=== PATIENT | male | born 1940 | race Caucasian/White ===

== ENCOUNTER 2017-06-14 14:30 | Inpatient (IN) | payer MEDICARE ==
[2017-06-27 13:27] VITALS: BMI 25.1
[2017-07-03] MEDS ORDERED: ceFAZolin IN SWFI 2 GM/20 ML SYRINGE IVP ONE (05:00)
[2017-07-03] MEDS ORDERED: BACITRACIN 50,000 UNIT, POLYMYXIN B 500,000 UNIT in SODIUM CHLORIDE 0.9% IRRIGATIO 1,00... IRRIGATION ONE (05:00)
[2017-07-03] MEDS ORDERED: MIDAZOLAM 2 MG/2 ML VIAL IV PRN (06:07)
[2017-07-03] MEDS ORDERED: DEXAMETHASONE SOD PHOSPHATE 10 MG/ML 1 ML VIAL IV ONE (06:07)
[2017-07-03] MEDS ORDERED: MORPHINE SULFATE 4 MG/ML SYRINGE IV PRN (06:07)
[2017-07-03] MEDS ORDERED: LIDOCAINE 1% 20 ML VIAL (10MG/ML) FOR IV START INTRADERMA PRN (06:07)
[2017-07-03] MEDS ORDERED: ONDANSETRON 4 MG/2 ML VIAL IVP ONE (06:07)
[2017-07-03] MEDS ORDERED: LACTATED RINGERS 1,000 ML IV SCH (06:07)
[2017-07-03 10:54] LABS: Glucose,Whole Blood 177 mg/dL (75-99)
[2017-07-03] MEDS ORDERED: GELATIN SPONGE,ABSORB (LARGE) 1 EACH SPONGE TOPICAL ONE (11:46)
[2017-07-03] MEDS ORDERED: LIDOCAINE 0.5%-EPI 1:200,000 50 ML VIAL SQ ONE (11:46)
[2017-07-03] MEDS ORDERED: THROMBIN (BOVINE) 5,000 UNIT VIAL TOPICAL ONE (11:46)
[2017-07-03] MEDS ORDERED: NEOSTIGMINE 1 MG/ML 10 ML VIAL ONE (12:36)
[2017-07-03] MEDS ORDERED: PROPOFOL 10 MG/ML 20 ML VIAL IV ONE (12:36)
[2017-07-03] MEDS ORDERED: MORPHINE SULFATE 10 MG/ML SYRINGE ONE (12:36)
[2017-07-03] MEDS ORDERED: MIDAZOLAM 2 MG/2 ML VIAL ONE (12:36)
[2017-07-03] MEDS ORDERED: fentaNYL (PF) 50 MCG/ML 2 ML AMP ONE (12:36)
[2017-07-03] MEDS ORDERED: PHENYLEPHRINE-0.9% NACL SYG 1 MG/10 ML SYRINGE ONE (12:36)
[2017-07-03] MEDS ORDERED: SUCCINYLCHOLINE CHLORIDE 100 MG/5 ML SYR IV ONE (12:36)
[2017-07-03] MEDS ORDERED: GLYCOPYRROLATE 0.2 MG/ML 2 ML VIAL ONE (12:36)
[2017-07-03] MEDS ORDERED: ROCURONIUM BROMIDE 10 MG/ML 10 ML VIAL IV ONE (12:36)
[2017-07-03] MEDS ORDERED: KETOROLAC 30 MG/ML 1 ML VIAL ONE (12:36)
--- NOTE | 2017-07-03 13:28 | FL ---
Fluoroscopy HISTORY: Lumbar laminectomy 3 seconds fluoroscopy time supplied to the referring clinician. 1 intraoperative C-arm images docume nt the procedure. See dictated report from orthopedic surgery.
[2017-07-03] MEDS ORDERED: methylPREDNISolone ACETATE 40 MG/ML 1 ML VIAL MISCELLANE ONE (13:30)
[2017-07-03] MEDS ORDERED: LACTATED RINGERS 1,000 ML IV ONE (13:38)
[2017-07-03] MEDS ORDERED: BENZOCAINE/MENTHOL LOZENG 1 EACH LOZENGE MUCOUS MEM PRN (13:55)
[2017-07-03] MEDS ORDERED: ONDANSETRON 4 MG/2 ML VIAL IVP PRN (13:56)
[2017-07-03] MEDS ORDERED: HYDROcodone/APAP 5-325MG 1 EACH TAB PO PRN (13:56)
[2017-07-03] MEDS ORDERED: HYDROcodone/APAP 7.5-325MG 1 EACH TAB PO PRN (13:58)
--- NOTE | 2017-07-03 14:04 | P.OP ---
Date of Procedure: 07/03/17 Preoperative Diagnosis: Severe spinal stenosis L4 5, neurogenic claudication, lower extremity radiculopathy Postoperative Diagnosis: Same Anesthesia: GETA Pathology: none sent Condition: stable Disposition: PACU Description of Procedure: DESCRIPTION OF PROCEDURE(S): BRIEF OPERATIVE NOTE Preoperative Diagnosis: Spinal stenosis severe at L4 5, neurogenic claudication , lower extremity radiculopathy Postoperative Diagnosis: Same Procedure: Laminectomy and decompression bilaterally at L4 5 Use of fluoroscopic guidance at L4 5 Placement of interlaminar stabilizer, Coflex device Surgeon: Dr. Caputo Backend Python Developer: Sami FREEMAN who is present throughout the entire the case persistence during positioning, dissection, exposure, visualization, and all crucial elements of the case as well as closure. Anesthesia: General anesthesia Estimated blood loss: Approximately 20 mL Complications: None apparent Components implanted: Paradigm Coflex interlaminar stabilization device Disposition: To recovery room in good stable condition. OPERATIVE INDICATIONS The patient has been having issues in their lower back and lower extremities. The patient was having evidence of neurogenic claudication and spinal stenosis along with issues with lower extremity radiculopathy. The patient was found to have significant spinal stenosis at L4 5 which was severe which correlated well with their low back and lower extremity symptoms. The patient has been through conservative treatment. With their imaging, and the level of their stenosis and their propensity for the possibility of recurrent stenosis I felt that decompression with intralaminar stabilization would be a good benefit for the patient. The patient went through significant conservative treatment. He has a number of medical issues with his cardiac issues vascular issues as well as diabetes. He is not having any benefit with aggressive conservative treatment. We discussed various treatment options including surgery, and the patient wishes to proceed with surgery We discussed the risk, patient's alternatives and benefits of surgery including but not limited to, risk of bleeding risk of infection, risk of need for further surgery, risk of decreased, loss of motion, loss of function, nerve damage, paralysis, heart attack, blindness and . OPERATIVE SUMMARY After discussing all the risks, patient alternatives and benefits at length, the patient elected to proceed with surgical intervention, signed informed consent, and presented for their procedure. The patient was seen and examined in the preoperative holding area and the surgical site was marked. The patient was given antibiotics and brought to the operating room. The patient was sedated and intubated by anesthesia in standard fashion. The patient was positioned on to the operating room table in a prone position on the appropriate frame which was well-padded and well molded. We were careful to pad any bony prominences and pressure points. We were careful to maintain the patient's cervical spine and good neutral alignment and position throughout. The patient was prepped and draped in a normal standard fashion. An appropriate timeout and keystone protocol performed. We were able to proceed with the surgery. Fluoroscopy was utilized to establish the appropriate level. The local wound area was infiltrated with local anesthetic. An incision was made at the midline longitudinally over the appropriate levels at L4 5. Dissection was taken down subcutaneously to the level of the fascia which was split midline. Dissection was taken over the lamina. Intraoperative fluoroscopy was taken which showed a marker at the appropriate level. With the appropriate level positively confirmed, we were able to proceed with laminectomy. The wound was copiously irrigated and suctioned dry as had been done periodically throughout the case. I performed a laminectomy with a combination of curettes and a high-speed bur and Kerrison rongeurs. A small medial facetectomy was performed again further access. This was done bilaterally at that level. A partial foraminotomy was also performed. Portions of the ligamentum flavum were taken down to expose the dura and traversing nerve root. I was able get wide decompression at L4 5 bilaterally. Good hemostasis maintained. The wound was copiously irrigated and suctioned dry. Good decompression was noted. At this point further prepared the interspinous process and interlaminar space with a combination of curettes and a high-speed bur and Kerrison rongeurs. As able get good parallel alignment at the interspinous process space and interlaminar space. I used a trial spacer for the Coflex device and have good fit and fill with the appropriate size device. I had to shave down the spinous process at to allow for appropriate positioning of the Coflex device. The device was prepared and then positioned and malleted in position with good alignment and good position and good bony purchase at the interlaminar space. The position was checked and found to be approximately 3 mm away from the dura without impingement on the dura itself. It was checked and found to be stable. Intraoperative C-arm was utilized to confirm the alignment and position at the appropriate levels at L4 5. We were able to proceed with closure. The fascia was closed for a watertight closure. The subcuticular tissue was closed with absorbable suture. The wound was cleaned and dried and dressed with the appropriate dressing. The drapes were broken down. The patient was gently rolled back onto their hospital bed being careful to maintain their cervical spine and good neutral alignment and position. They were woken up by anesthesia, extubated, and brought to the recovery room in good stable condition. The patient will be admitted to the hospital for observation and for appropriate postoperative care, medical management and monitoring. We will continue to follow them closely about the postoperative course.
[2017-07-03] MEDS ORDERED: MORPHINE SULFATE 4 MG/ML SYRINGE IVP ONE (14:20)
[2017-07-03] MEDS ORDERED: hydrALAZINE HCL 20 MG/ML 1 ML VIAL IVP ONE (15:00)
[2017-07-03] MEDS ORDERED: INSULIN ASPART 100 UNIT/ML 1 ML 10 ML VIAL SQ ONE (15:15)
[2017-07-03 15:16] LABS: Glucose,Whole Blood 244 mg/dL (75-99)
[2017-07-03] MEDS: HYDROcodone/APAP 5-325MG 1 EACH TAB PO PRN (16:53)
[2017-07-03] MEDS: SODIUM CHLORIDE 0.9% 1,000 ML IV SCH (16:53)
[2017-07-03 17:04] LABS: Glucose,Whole Blood 238 mg/dL (75-99)
[2017-07-03] MEDS ORDERED: INSULN ASP PRT/INSULIN ASPART 100 UNIT/ML 10 ML VIAL SQ SCH (17:30)
[2017-07-03] MEDS: ceFAZolin IN SWFI 2 GM/20 ML SYRINGE IVP SCH ×2 (18:06→23:28)
[2017-07-03] MEDS: MORPHINE SULFATE 4 MG/ML SYRINGE IVP PRN ×2 (19:43→23:27)
[2017-07-03 20:37] LABS: Glucose,Whole Blood 294 mg/dL (75-99)
[2017-07-03] MEDS ORDERED: ATORVASTATIN 10 MG TAB PO SCH (21:00)
[2017-07-03 21:59] VITALS: RESP 18
[2017-07-04] MEDS: SODIUM CHLORIDE 0.9% 1,000 ML IV SCH (04:29)
[2017-07-04] MEDS: HYDROcodone/APAP 5-325MG 1 EACH TAB PO PRN ×2 (04:41→09:39)
[2017-07-04 06:27] VITALS: BP 147/74; PULSE 76; TEMP 98.1
[2017-07-04 07:00] LABS: Glucose,Whole Blood 233 mg/dL (75-99)
[2017-07-04] MEDS ORDERED: INSULN ASP PRT/INSULIN ASPART 100 UNIT/ML 10 ML VIAL SQ SCH (07:30)
--- NOTE | 2017-07-04 08:33 | P.DS ---
Providers Date of admission: 07/03/17 10:21 Expected date of discharge: 07/04/17 Attending physician: Dallas Caputo Primary care physician: Arjun Malhotra - Discharge Diagnosis(es) (1) Neurogenic claudication Current Visit: Yes Status: Acute (2) Radiculopathy with lower extremity symptoms Current Visit: Yes Status: Acute (3) Lumbar stenosis Current Visit: Yes Status: Acute Hospital Course: This is a pleasant 76-year-old male who presented with L4-5 severe spinal canal stenosis, neurogenic claudication, and lower extremity radiculopathy who failed outpatient conservative therapy. He was admitted for an L4-5 laminectomy and decompression with placement of interlaminar stabilization device. The patient tolerated the procedure well and did well postoperatively. His pain has been adequately controlled. He is been able to ambulate the hallways. He is not currently experiencing any lower extremity radiculopathy like he was prior to surgical intervention. He feels he is ready for discharge. Condition on day of discharge stable. Patient will be discharged home. Patient was cleared preoperatively for surgery by Dr. Malhotra. Patient currently denies any nausea , vomiting, fever, or chills. Patient is eating and voiding freely without difficulty. Patient may shower Tegaderm dressing intact. Patient may remove Tegaderm dressing in 3 days and shower without a dressing at that time. Patient should keep Steri-Strips intact and allow them to fall off naturally. Patient should refrain from driving until at least after their first follow-up appointment in the office. Patient should avoid excessive bending, lifting, and twisting; no lifting greater than 20 pounds. Patient may resume [place] 7.5 mg/325 mg as previously prescribed as needed for his symptoms along with his other previously prescribed home medications. MAPS was performed prior to discharge. Physical Exam on day of discharge: Patient is awake, alert, and oriented 3 Vital signs stable Good chest excursion with deep inspiration and expiration Abdomen soft nontender No signs or symptoms of DVT Extensor hallucis longus, plantarflexion, and dorsiflexion positive sustained bilateral lower extremities Incision is dry and intact; some dried blood at the inferior portion of the dressing; no erythema, purulence, or signs of infection No active drainage from the surgical site Significant pain with palpation of the surgical site Tegaderm dressing and non-stick Telfa intact Procedures: L4-5 laminectomy and decompression with placement of interlaminar stabilization device Patient Condition at Discharge: Stable Plan - Discharge Summary Discharge Rx Participant: Yes New Discharge Prescriptions: No Action metFORMIN HCL 1,000 mg PO DAILY Lisinopril [Zestril] 10 mg PO DAILY Metoprolol Tartrate [Lopressor] 50 mg PO DAILY Insulin Aspart Protam & Aspart [NovoLOG MIX 70-30 Flexpen] 25 unit SQ AC- SUPPER HYDROcodone/APAP 7.5-325MG [[place] 7.5-325] 1 tab PO Q4H PRN PRN Reason: Pain Insulin Aspart Protam & Aspart [NovoLOG MIX 70-30 Flexpen] 45 unit SQ AC- BRKFST Simvastatin [Zocor] 20 mg PO HS Aspirin 81 mg PO DAILY Clopidogrel [Plavix] 75 mg PO DAILY Discharge Medication List Aspirin 81 mg PO DAILY 06/27/17 [History] Clopidogrel [Plavix] 75 mg PO DAILY 06/27/17 [History] HYDROcodone/APAP 7.5-325MG [[place] 7.5-325] 1 tab PO Q4H PRN 06/27/17 [History] Insulin Aspart Protam & Aspart [NovoLOG MIX 70-30 Flexpen] 25 unit SQ AC-SUPPER 06/27/17 [History] Insulin Aspart Protam & Aspart [NovoLOG MIX 70-30 Flexpen] 45 unit SQ AC-BRKFST 06/27/17 [History] Lisinopril [Zestril] 10 mg PO DAILY 06/27/17 [History] Metoprolol Tartrate [Lopressor] 50 mg PO DAILY 06/27/17 [History] Simvastatin [Zocor] 20 mg PO HS 06/27/17 [History] metFORMIN HCL 1,000 mg PO DAILY 06/27/17 [History] Follow up Appointment(s)/Referral(s): Dallas Caputo DO [Doctor of Osteopathic Medicine] - 2 Weeks Activity/Diet/Wound Care/Special Instructions: Keep site clean May shower with waterproof dressing intact On Monday patient may shower with area uncovered believe Steri-Strips intact and allow them to fray off on their own. Do not soak in a tub. May ambulate to tolerance. Avoid repetitive bending twisting or lifting. No lifting greater than 20 pounds. Avoid heavy or rigorous activity. Discharge Disposition: HOME SELF-CARE
[2017-07-04] MEDS ORDERED: METOPROLOL TARTRATE 50 MG TAB PO SCH (09:00)
[2017-07-04] MEDS ORDERED: LISINOPRIL 10 MG TAB PO SCH (09:00)
[2017-07-04] MEDS ORDERED: metFORMIN 500 MG TAB PO SCH (09:00)
[2017-07-04] MEDS ORDERED: CLOPIDOGREL 75 MG TAB PO SCH (09:00)
[2017-07-04] MEDS ORDERED: SENNOSIDES-DOCUSATE SODIUM 1 EACH TAB PO SCH (09:00)
[2017-07-04] MEDS ORDERED: ASPIRIN 81 MG PO SCH (09:00)
== END 2017-07-04 11:20 | disposition home or self-care (01) | DRG 517 ==
LOC: 2ORMAIN 07-03 10:21 → 5MS5E 07-03 14:21
PROVIDERS: ADMIT Orthopaedic Surgery Orthopaedic Surgery of the Spine; ATTEND Orthopaedic Surgery Orthopaedic Surgery of the Spine
PROC: 01NB0ZZ Release Lumbar Nerve, Open Approach (ICD-10-PCS; principal; 2017-07-03 12:00)
DX: M48.062 Spinal stenosis, lumbar region with neurogenic claudication (principal); M47.817 Spondylosis without myelopathy or radiculopathy, lumbosacral region; M51.16 Intervertebral disc disorders with radiculopathy, lumbar region; I25.10 Atherosclerotic heart disease of native coronary artery without angina pectoris; E78.5 Hyperlipidemia, unspecified; E11.40 Type 2 diabetes mellitus with diabetic neuropathy, unspecified; K21.9 Gastro-esophageal reflux disease without esophagitis; M19.90 Unspecified osteoarthritis, unspecified site; I65.23 Occlusion and stenosis of bilateral carotid arteries; I25.2 Old myocardial infarction; R01.1 Cardiac murmur, unspecified; E11.51 Type 2 diabetes mellitus with diabetic peripheral angiopathy without gangrene; E11.22 Type 2 diabetes mellitus with diabetic chronic kidney disease; I12.9 Hypertensive chronic kidney disease with stage 1 through stage 4 chronic kidney disease, or unspecified chronic kidney disease; N18.9 Chronic kidney disease, unspecified; Z95.5 Presence of coronary angioplasty implant and graft; Z87.891 Personal history of nicotine dependence; Z79.01 Long term (current) use of anticoagulants; Z79.82 Long term (current) use of aspirin; Z79.899 Other long term (current) drug therapy; Z90.49 Acquired absence of other specified parts of digestive tract; Z90.79 Acquired absence of other genital organ(s); Z83.3 Family history of diabetes mellitus
CPT/HCPCS: 86850; 86870; 86880; 86900; 86901

== ENCOUNTER 2021-03-30 11:06 | Observation (INO) | payer MEDICARE ==
[2021-03-30 12:10] LABS: Basophils # (A) 0.1 k/uL (0-0.2); Basophils % (A) 1 %; Eosinophils # (A) 0.1 k/uL (0-0.7); Eosinophils % (A) 1 %; HGB 9.4 gm/dL (13.0-17.5); Lymphocytes # (A) 1.3 k/uL (1.0-4.8); Lymphocytes % (A) 15 %; MCH 33.8 pg (25.0-35.0); MCHC 33.6 g/dL (31.0-37.0); MCV 100.5 fL (80.0-100.0); Macrocytosis Slight; Mean Platelet Volume 7.5; Monocytes # (A) 0.6 k/uL (0-1.0); Monocytes % (A) 7 %; Neutrophils # (A) 6.5 k/uL (1.3-7.7); Neutrophils % (A) 75 %; Platelet Count 371 k/uL (150-450); RBC 2.79 m/uL (4.30-5.90); RDW 14.2 % (11.5-15.5); WBC 8.6 k/uL (3.8-10.6)
[2021-03-30 12:22] LABS: Albumin 3.2 g/dL (3.5-5.0); Calcium 8.6 mg/dL (8.4-10.2); Magnesium 1.8 mg/dL (1.6-2.3); Potassium 5.4 mmol/L (3.5-5.1); Total Bilirubin 0.4 mg/dL (0.2-1.3); Total Protein 6.2 g/dL (6.3-8.2)
--- NOTE | 2021-03-30 12:53 | ED ---
General Adult HPI - General Chief complaint: Recheck/Abnormal Lab/Rx Stated complaint: NSTEMI Source: patient, EMS Mode of arrival: EMS Limitations: no limitations - History of Present Illness Initial comments: Patient is an 80-year-old male past medical history of coronary artery disease status post 2 stents which were placed approximately 3-4 years ago at [facility] presents emergency department from [facility]. Patient has a history of chronic back pain. States that he was cut off from his [place] and therefore his son gave him a marijuana cookie last night. He began having altered mental status and then became obtunded. He was transferred via EMS to [facility]. [facility] watched him overnight and discharge him in the morning. He did have a bump in his troponin therefore they recommended transfer here for an STEMI evaluation. Review the patient's chart and stated that the patient had a troponin of 0.034 originally. Repeat troponin 1 up to 0.228. X- ray also shows masslike density in the left lower lobe suspicious for tumor. 7 cm in size. She has no chest pain or shortness of breath. - Related Data Home Medications Medication Instructions Recorded Confirmed Aspirin 81 mg PO DAILY 06/27/17 03/30/21 Clopidogrel [Plavix] 75 mg PO DAILY 06/27/17 03/30/21 HYDROcodone/APAP 7.5-325MG [[place] 1 tab PO Q6H PRN 06/27/17 03/30/21 7.5-325] Insulin Aspart Protam & Aspart 20 unit SQ AC-SUPPER 06/27/17 03/30/21 [NovoLOG MIX 70-30 Flexpen] Insulin Aspart Protam & Aspart 25 unit SQ AC-BRKFST 06/27/17 03/30/21 [NovoLOG MIX 70-30 Flexpen] Metoprolol Succinate [Toprol XL] 50 mg PO DAILY 03/30/21 03/30/21 Omeprazole 20 mg PO DAILY 03/30/21 03/30/21 Simvastatin [Zocor] 10 mg PO HS 03/30/21 03/30/21 Tamsulosin [Flomax] 0.4 mg PO HS 03/30/21 03/30/21 lisinopriL [Zestril] 5 mg PO DAILY 03/30/21 03/30/21 metFORMIN HCL 500 mg PO DAILY 03/30/21 03/30/21 Allergies Allergy/AdvReac Type Severity Reaction Status Date / Time No Known Allergies Allergy Verified 03/30/21 12:40 Review of Systems ROS Statement: Those systems with pertinent positive or pertinent negative responses have been documented in the HPI. ROS Other: All systems not noted in ROS Statement are negative. Past Medical History Past Medical History: Coronary Artery Disease (CAD), Cancer, Diabetes Mellitus, GERD/Reflux, Hyperlipidemia, Hypertension, Osteoarthritis (OA) Additional Past Medical History / Comment(s): APPENDIX -CARCENOID TUMOR, BACK PAIN History of Any Multi-Drug Resistant Organisms: None Reported Past Surgical History: Appendectomy, Cholecystectomy, Heart Catheterization With Stent Additional Past Surgical History / Comment(s): CAROTID ENDARTECTOMY, BILATERAL LEGS- PTBA POSS PTCA , FEM-FEMORAL POPITEAL BYPASS Past Anesthesia/Blood Transfusion Reactions: No Reported Reaction Date of Last Stent Placement:: AUGUST 2016 Past Psychological History: Anxiety Smoking Status: Former smoker Past Alcohol Use History: None Reported Past Drug Use History: None Reported - Past Family History Mother Family Medical History: No Reported History General Exam Limitations: no limitations Course Vital Signs 03/30/21 03/30/21 11:49 13:20 Temperature 98.2 F Pulse Rate 72 70 Respiratory 18 18 Rate Blood Pressure 142/69 143/73 O2 Sat by Pulse 98 99 Oximetry - Reevaluation(s) Reevaluation #1: 03/30/21 14:[address] Romero - will order echo and hold off on heparin EKG Findings - EKG Comments: EKG Findings:: EKG demonstrates sinus rhythm with a ventricular rate of 65. HI interval 201. QRS 105. QTC of 442. No acute ST segment elevations. Inverted T-wave lead V2 Medical Decision Making - Medical Decision Making Upon arrival the patient is placed in room 17. A thorough history and physical exam was performed. Laboratory studies were repeated. He does have a troponin of 0.301. Because of this I did call to the Dr. Romero. States that the patient is a symptomatic he does not need heparin at this time. He is okay with me ordering an echo. Potassium is 5.4 and therefore the patient is given a liter bolus normal saline. Spoke with Dr. Gómez agreed to admit the patient. He is currently awaiting a bed on the floor - Lab Data Result diagrams: 03/30/21 11:49 03/30/21 11:49 Lab Results 03/30/21 03/30/21 03/30/21 Range/Units 11:49 11:49 11:49 WBC 8.6 (3.8-10.6) k/uL RBC 2.79 L (4.30-5.90) m/uL Hgb 9.4 L (13.0-17.5) gm/dL Hct 28.0 L (39.0-53.0) % MCV 100.5 H (80.0-100.0) fL MCH 33.8 (25.0-35.0) pg MCHC 33.6 (31.0-37.0) g/dL RDW 14.2 (11.5-15.5) % Plt Count 371 (150-450) k/uL MPV 7.5 Neutrophils % 75 % Lymphocytes % 15 % Monocytes % 7 % Eosinophils % 1 % Basophils % 1 % Neutrophils # 6.5 (1.3-7.7) k/uL Lymphocytes # 1.3 (1.0-4.8) k/uL Monocytes # 0.6 (0-1.0) k/uL Eosinophils # 0.1 (0-0.7) k/uL Basophils # 0.1 (0-0.2) k/uL Macrocytosis Slight PT 10.4 (9.0-12.0) sec INR 1.0 (<1.2) APTT 21.3 L (22.0-30.0) sec Sodium 134 L (137-145) mmol/L Potassium 5.4 H (3.5-5.1) mmol/L Chloride 106 (98-107) mmol/L Carbon Dioxide 24 (22-30) mmol/L Anion Gap 4 mmol/L BUN 21 H (9-20) mg/dL Creatinine 1.32 H (0.66-1.25) mg/dL Est GFR (CKD-EPI)AfAm 59 (>60 ml/min/1.73 sqM) Est GFR (CKD-EPI)NonAf 51 (>60 ml/min/1.73 sqM) Glucose 190 H (74-99) mg/dL Calcium 8.6 (8.4-10.2) mg/dL Magnesium 1.8 (1.6-2.3) mg/dL Total Bilirubin 0.4 (0.2-1.3) mg/dL AST 16 L (17-59) U/L ALT 10 (4-49) U/L Alkaline Phosphatase 61 (38-126) U/L Troponin I (0.000-0.034) ng/mL NT-Pro-B Natriuret Pep pg/mL Total Protein 6.2 L (6.3-8.2) g/dL Albumin 3.2 L (3.5-5.0) g/dL 03/30/21 03/30/21 Range/Units 11:49 11:49 WBC (3.8-10.6) k/uL RBC (4.30-5.90) m/uL Hgb (13.0-17.5) gm/dL Hct (39.0-53.0) % MCV (80.0-100.0) fL MCH (25.0-35.0) pg MCHC (31.0-37.0) g/dL RDW (11.5-15.5) % Plt Count (150-450) k/uL MPV Neutrophils % % Lymphocytes % % Monocytes % % Eosinophils % % Basophils % % Neutrophils # (1.3-7.7) k/uL Lymphocytes # (1.0-4.8) k/uL Monocytes # (0-1.0) k/uL Eosinophils # (0-0.7) k/uL Basophils # (0-0.2) k/uL Macrocytosis PT (9.0-12.0) sec INR (<1.2) APTT (22.0-30.0) sec Sodium (137-145) mmol/L Potassium (3.5-5.1) mmol/L Chloride (98-107) mmol/L Carbon Dioxide (22-30) mmol/L Anion Gap mmol/L BUN (9-20) mg/dL Creatinine (0.66-1.25) mg/dL Est GFR (CKD-EPI)AfAm (>60 ml/min/1.73 sqM) Est GFR (CKD-EPI)NonAf (>60 ml/min/1.73 sqM) Glucose (74-99) mg/dL Calcium (8.4-10.2) mg/dL Magnesium (1.6-2.3) mg/dL Total Bilirubin (0.2-1.3) mg/dL AST (17-59) U/L ALT (4-49) U/L Alkaline Phosphatase (38-126) U/L Troponin I 0.301 H* (0.000-0.034) ng/mL NT-Pro-B Natriuret Pep 1910 pg/mL Total Protein (6.3-8.2) g/dL Albumin (3.5-5.0) g/dL Disposition Clinical Impression: NSTEMI (non-ST elevated myocardial infarction), Acute encephalopathy Disposition: ADMITTED IP TO THIS HOSP Condition: Serious Is patient prescribed a controlled substance at d/c from ED?: No Decision to Admit Reason: Admit from EC Decision Date: 03/30/21 Decision Time: 13:50
[2021-03-30 13:04] LABS: Prothrombin Time 10.4 sec (9.0-12.0)
[2021-03-30 13:11] LABS: Partial Thromboplastin Time 21.3 sec (22.0-30.0)
[2021-03-30] MEDS ORDERED: SODIUM CHLORIDE 0.9% 1,000 ML IV ONE (13:50)
[2021-03-30] MEDS ORDERED: NALOXONE 0.4 MG/ML 1 ML VIAL IV PRN (13:51)
[2021-03-30] MEDS: HYDROcodone/APAP 7.5-325MG 1 EACH TAB PO ONE ×2 (14:26→14:33)
[2021-03-30] MEDS ORDERED: HYDROcodone/APAP 7.5-325MG 1 EACH TAB PO ONE (14:33)
[2021-03-30] MEDS: INSULN ASP PRT/INSULIN ASPART 100 UNIT/ML 10 ML VIAL SQ SCH (18:59)
[2021-03-30 19:04] LABS: Glucose,Whole Blood 166 mg/dL (75-99)
[2021-03-30] MEDS ORDERED: ACETAMINOPHEN TAB 325 MG TAB PO PRN (21:58)
[2021-03-30] MEDS ORDERED: MELATONIN 3 MG TABLET PO PRN (21:58)
[2021-03-30] MEDS ORDERED: LACTULOSE 20 GM/30 ML CUP PO PRN (21:58)
[2021-03-30] MEDS ORDERED: CALCIUM CARBONATE 500 MG CHEWABLE PO PRN (21:58)
[2021-03-30] MEDS ORDERED: ALPRAZolam 0.25 MG TAB PO PRN (21:58)
[2021-03-30] MEDS ORDERED: ONDANSETRON 4 MG/2 ML VIAL IVP PRN (21:58)
[2021-03-30] MEDS: TAMSULOSIN 0.4 MG CAP.ER.24H PO SCH (22:12)
[2021-03-30] MEDS: HYDROcodone/APAP 7.5-325MG 1 EACH TAB PO PRN (22:12)
[2021-03-30] MEDS: ATORVASTATIN 10 MG TAB PO SCH (22:13)
[2021-03-31] MEDS: HYDROcodone/APAP 7.5-325MG 1 EACH TAB PO PRN ×4 (04:17→23:03)
[2021-03-31] MEDS: INSULIN ASPART (NovoLOG) 100 UNIT/ML VIAL SQ SCH ×3 (06:43→17:48)
[2021-03-31] MEDS: PANTOPRAZOLE 40 MG TABLET PO SCH (06:43)
[2021-03-31 06:44] LABS: Glucose,Whole Blood 166 mg/dL (75-99)
[2021-03-31] MEDS: INSULN ASP PRT/INSULIN ASPART 100 UNIT/ML 10 ML VIAL SQ SCH ×2 (06:54→17:49)
--- NOTE | 2021-03-31 07:07 | ECHOF ---
Referral Reason:nstemi MEASUREMENTS -------- HEIGHT: 180.3 cm WEIGHT: 77.1 kg BP: RVIDd: 2.0 cm (< 3.3) IVSd: 1.2 cm (0.6 - 1.1) LVIDd: 4.4 cm (3.9 - 5.3) LVPWd: 1.6 cm (0.6 - 1.1) IVSs: 1.9 cm LVIDs: 2.3 cm LVPWs: 2.1 cm Ao Diam: 3.4 cm (2.0 - 3.7) AV Cusp: 2.2 cm (1.5 - 2.6) LA Diam: 3.3 cm (2.7 - 3.8) MV EXCURSION: 15.965 mm (> 18.000) MV EF SLOPE: 62 mm/s (70 - 150) EPSS: 0.5 cm MV E Tyree: 0.95 m/s MV DecT: 220 ms MV A Tyree: 1.03 m/s MV E/A Ratio: 0.92 RAP: 5.00 mmHg RVSP: 14.73 mmHg FINDINGS -------- Sinus rhythm. This was a technically adequate study. The left ventricular size is normal. There is moderate concentric left ventricular hypertrophy. O verall left ventricular systolic function is mildly impaired with, an EF between 45 - 50 %. Normal LAP Grade 1 Diastolic Dysfunction. Mid- Mid inferior LV wall motion is hypokinetic. Apical inferi or LV wall motion is hypokinetic. Apical septum LV wall motion is hypokinetic. Septal Hypokines is The right ventricle is normal in size. The left atrial size is normal. The right atrial size is normal. There is mild aortic valve sclerosis. Trace to mild aortic regurgitation. Moderate mitral annular calcification present. Mild mitral regurgitation is present. The tricuspid valve appears structurally normal. Mild tricuspid regurgitation present. Right vent ricular systolic pressure is normal at < 35 mmHg. There is no pulmonic regurgitation present. The aortic root size is normal. Normal inferior vena cava with normal inspiratory collapse consistent with estimated right atrial pre ssure of 5 mmHg. There is no pericardial effusion. CONCLUSIONS -------- 1. There is moderate concentric left ventricular hypertrophy. 2. Normal LAP Grade 1 Diastolic Dysfunction. 3. Mid inferior LV wall motion is hypokinetic. 4. Apical inferior LV wall motion is hypokinetic. 5. Apical septum LV wall motion is hypokinetic. 6. MiSeptal Hypokinesis 7. The left atrial size is normal. 8. There is mild aortic valve sclerosis. 9. Trace to mild aortic regurgitation. 10. Moderate mitral annular calcification present. 11. Mild mitral regurgitation is present. 12. Mild tricuspid regurgitation present. 13. There is no pericardial effusion. DIRECTOR CONTENT MARKETING: Cary Simms RDCS
[2021-03-31 08:25] LABS: Basophils # (A) 0.1 k/uL (0-0.2); Basophils % (A) 1 %; Eosinophils # (A) 0.2 k/uL (0-0.7); Eosinophils % (A) 2 %; HCT 30.2 % (39.0-53.0); HGB 9.9 gm/dL (13.0-17.5); Lymphocytes # (A) 1.5 k/uL (1.0-4.8); Lymphocytes % (A) 19 %; MCH 33.2 pg (25.0-35.0); MCHC 32.7 g/dL (31.0-37.0); MCV 101.5 fL (80.0-100.0); Macrocytosis Slight; Mean Platelet Volume 8.1; Monocytes # (A) 0.5 k/uL (0-1.0); Monocytes % (A) 6 %; Neutrophils # (A) 5.5 k/uL (1.3-7.7); Neutrophils % (A) 69 %; Platelet Count 399 k/uL (150-450); RBC 2.98 m/uL (4.30-5.90); RDW 14.4 % (11.5-15.5); WBC 7.9 k/uL (3.8-10.6)
[2021-03-31 08:44] LABS: Calcium 9.1 mg/dL (8.4-10.2)
[2021-03-31] MEDS ORDERED: lisinopriL 5 MG TAB PO SCH (09:00)
[2021-03-31] MEDS: METOPROLOL SUCCINATE (ER) 50 MG TAB.ER.24H PO SCH (09:34)
[2021-03-31] MEDS: CLOPIDOGREL 75 MG TAB PO SCH (09:35)
[2021-03-31] MEDS: ASPIRIN 81 MG PO SCH (09:35)
[2021-03-31] MEDS ORDERED: lisinopriL 5 MG TAB PO STA (10:06)
--- NOTE | 2021-03-31 10:12 | P.CRDCN ---
History of Present Illness History of present illness: HISTORY OF PRESENTING ILLNESS This is a pleasant 80-year-old male past medical history significant for coronary artery disease status post PCI in 2017 (unknown details, thinks he had 2 stents), former smoker, type 2 diabetes, hypertension, dyslipidemia, chronic back pain, peripheral vascular disease (he thinks he had stents placed in the left lower extremity), carotid artery disease. He follows in the office with Dr. Terry Rogers in [place]. We have been asked to see in consultation for elevated troponin. Patient presents to [facility] as a transfer from [facility]. Patient does not recall the event, he remembers feeling "out of it" then he was at [facility]. He did take a [place] and half of an marijuana edible cookie. Apparently,his son gave him a marijuana edible cookie. After this, he had symptoms of altered mental status and apparently became obtunded. EMS was called, patient was brought to [facility]. Troponin was drawn and initially was 0.036-->0.034-->0.22. Transferred to [facility]. Troponins here were 0.29 and 0.24. He denies any complaints, no chest pain, shortness of breath, palpitations, lightheadedness, dizziness. Denies any recent weight loss. He denies history of Stroke, PE or DVT. Former smoker quit 16 years ago. He states 2-3 weeks ago, he followed up with Dr. Rogers. No acute findings. He states he was told he has blockages in his carotids with 70% blocked on the right, which is the same as 4 years ago. He was noted to have significant peripheral vascular disease in his bilateral lower extremities as well and has been referred to a vascular surgeon. DIAGNOSTICS -EKG reveals sinus rhythm, heart rate 65, T wave inversions in lead V2, non- specific St-T wave abnormalities -Echocardiogram revealed EF 45-50%, mid inferior, apical inferior/septum, mid septal hypokinesis, mild mitral regurgitation, mild tricuspid regurgitation, trace to mild aortic regurgitation. -Chest X-ray Report At [facility] revealed mass-like density in the left lower lobe suspicious for tumor. 7 cm in size. -CT brain report at [facility] no acute intracranial abnormality -UA tox was positive at [facility] for THC and Opiates Telemetry tracings indicate sinus mechanism HR 70s Laboratory reviewed, WBC 0.6, hemoglobin 9.4, platelets 371, sodium 134, potassium 5.1, BUN 21, serum creatinine 1.3, troponin 0.30, proBNP 1910 Current home medications include lisinopril 5 mg daily, simvastatin 10 mg nightly, metoprolol titrate 50 mg daily, Plavix 75 mg daily, aspirin 81 mg daily, metformin, insulin REVIEW OF SYSTEMS At the time of my exam: CONSTITUTIONAL: Denies fever or chills. CARDIOVASCULAR: Denies chest pain, shortness of breath, orthopnea, PND or palpitations. RESPIRATORY: Denies cough. GASTROINTESTINAL: Denies abdominal pain, diarrhea, constipation, nausea or vomiting. MUSCULOSKELETAL: Denies myalgias. NEUROLOGIC: Denies numbness, tingling, headacbe or weakness. ENDOCRINE: Denies fatigue, weight change, polydipsia or polyurina. GENITOURINARY: Denies burning, hematuria or urgency with micturation. HEMATOLOGIC: Denies history of anemia or bleeding. PHYSICAL EXAMINATION Vitals reviewed CONSTITUTIONAL: No apparent distress. HEENT: Head is normocephalic. Pupils are equal, round. Sclerae anicteric. Mucous membranes of the mouth are moist. No JVD. No carotid bruit. CHEST EXAMINATION: Lungs are clear to auscultation. No chest wall tenderness is noted on palpation or with deep breathing. HEART EXAMINATION: Regular rate and rhythm. S1, S2 heard. No murmurs, gallops or rub. ABDOMEN: Soft, nontender. Positive bowel sounds. EXTREMITIES: 2+ peripheral pulses, no lower extremity edema and no calf tenderness. NEUROLOGIC EXAMINATION: Patient is awake, alert and oriented x3. ASSESSMENT Elevated troponin, trend does not appear to be consistent with acute coronary syndrome, No evidence of ischemia noted on EKG, however EF 45-50% with wall motion abnormalities unclear if this is new Cardimyopathy,likely ischemic, EF 45-50% unclear if new/change from prior, awaiting records Acute kidney injury, improved Marijuana use Coronary artery disease status post PCI about 3-4 years ago (unknown details) Type 2 diabetes Hypertension Dyslipidemia Chronic back pain. PLAN Obtain records from Patient's [employer] Engineer Dr. Rogers Add Imdur 30mg daily Increase lisinopril to 10mg daily Continue cardiac telemetry Continue other home cardiac medications We will await records from Dr. Rogers and patient's prior Echo results and workup to determine next form of treatment. Nurse practitioner note has been reviewed by physician. Signing provider agrees with the documented findings, assessment, and plan of care. Past Medical History Past Medical History: Coronary Artery Disease (CAD), Cancer, Diabetes Mellitus, GERD/Reflux, Hyperlipidemia, Hypertension, Osteoarthritis (OA) Additional Past Medical History / Comment(s): APPENDIX -CARCENOID TUMOR, BACK PAIN History of Any Multi-Drug Resistant Organisms: None Reported Past Surgical History: Appendectomy, Cholecystectomy, Heart Catheterization With Stent Additional Past Surgical History / Comment(s): CAROTID ENDARTECTOMY, BILATERAL LEGS- PTBA POSS PTCA , FEM-FEMORAL POPITEAL BYPASS Past Anesthesia/Blood Transfusion Reactions: No Reported Reaction Date of Last Stent Placement:: AUGUST 2016 Past Psychological History: Anxiety Smoking Status: Former smoker Past Alcohol Use History: None Reported Past Drug Use History: None Reported - Past Family History Mother Family Medical History: No Reported History Medications and Allergies Home Medications Medication Instructions Recorded Confirmed Type Aspirin 81 mg PO DAILY 06/27/17 03/30/21 History Clopidogrel [Plavix] 75 mg PO DAILY 06/27/17 03/30/21 History HYDROcodone/APAP 7.5-325MG [[place] 1 tab PO Q6H PRN 06/27/17 03/30/21 History 7.5-325] Insulin Aspart Protam & Aspart 20 unit SQ AC-SUPPER 06/27/17 03/30/21 History [NovoLOG MIX 70-30 Flexpen] Insulin Aspart Protam & Aspart 25 unit SQ AC-BRKFST 06/27/17 03/30/21 History [NovoLOG MIX 70-30 Flexpen] Metoprolol Succinate [Toprol XL] 50 mg PO DAILY 03/30/21 03/30/21 History Omeprazole 20 mg PO DAILY 03/30/21 03/30/21 History Simvastatin [Zocor] 10 mg PO HS 03/30/21 03/30/21 History Tamsulosin [Flomax] 0.4 mg PO HS 03/30/21 03/30/21 History lisinopriL [Zestril] 5 mg PO DAILY 03/30/21 03/30/21 History metFORMIN HCL 500 mg PO DAILY 03/30/21 03/30/21 History Allergies Allergy/AdvReac Type Severity Reaction Status Date / Time No Known Allergies Allergy Verified 03/30/21 12:40 Physical Exam Vitals: Vital Signs Temp Pulse Resp BP Pulse Ox 03/30/21 13:20 70 18 143/73 99 03/30/21 11:49 98.2 F 72 18 142/69 98 Intake and Output 03/29/21 03/30/21 03/30/21 22:59 06:59 14:59 Other: Weight 77.111 kg Results 03/31/21 08:04 03/31/21 08:04 Cardiac Enzymes 03/30/21 03/30/21 Range/Units 11:49 11:49 AST 16 L (17-59) U/L Troponin I 0.301 H* (0.000-0.034) ng/mL Coagulation 03/30/21 Range/Units 11:49 PT 10.4 (9.0-12.0) sec APTT 21.3 L (22.0-30.0) sec CBC 03/30/21 Range/Units 11:49 WBC 8.6 (3.8-10.6) k/uL RBC 2.79 L (4.30-5.90) m/uL Hgb 9.4 L (13.0-17.5) gm/dL Hct 28.0 L (39.0-53.0) % Plt Count 371 (150-450) k/uL Comprehensive Metabolic Panel 03/30/21 Range/Units 11:49 Sodium 134 L (137-145) mmol/L Potassium 5.4 H (3.5-5.1) mmol/L Chloride 106 (98-107) mmol/L Carbon Dioxide 24 (22-30) mmol/L BUN 21 H (9-20) mg/dL Creatinine 1.32 H (0.66-1.25) mg/dL Glucose 190 H (74-99) mg/dL Calcium 8.6 (8.4-10.2) mg/dL AST 16 L (17-59) U/L ALT 10 (4-49) U/L Alkaline Phosphatase 61 (38-126) U/L Total Protein 6.2 L (6.3-8.2) g/dL Albumin 3.2 L (3.5-5.0) g/dL Current Medications Generic Name Dose Route Start Last Admin Trade Name Freq PRN Reason Stop Dose Admin Sodium Chloride 1,000 mls @ 999 mls/hr 03/30/21 13:50 Saline 0.9% IV 03/30/21 14:50 .Q1H1M ONE Naloxone HCl 0.2 mg 03/30/21 13:51 Naloxone 0.4 Mg/Ml 1 Ml Vial IV Q2M PRN Opioid Reversal Intake and Output 03/29/21 03/30/21 03/30/21 22:59 06:59 14:59 Other: Weight 77.111 kg Patient Weight 03/31/21 06:59 Weight 77.111 kg 03/30/21 11:49 03/30/21 11:49
[2021-03-31] MEDS ORDERED: RX INFO: IV CONTRAST WAS GIVEN 1 EACH MISC MISCELLANE PRN (12:21)
[2021-03-31 12:23] LABS: Glucose,Whole Blood 196 mg/dL (75-99)
[2021-03-31] MEDS: ISOSORBIDE MONONITRATE ER 30 MG TAB.ER.24H PO SCH (12:30)
--- NOTE | 2021-03-31 14:10 | CT ---
EXAMINATION TYPE: CT brain wo con DATE OF EXAM: 03/31/2021 COMPARISON: 03/29/2021 HISTORY: Acute Encephalopathy-resolved CT DLP: 1094.4 mGycm Automated exposure control for dose reduction was used. FINDINGS: Moderate generalized degenerative change with the low attenuation in the white matter which is nonspe cific. No midline shift or mass effect. Calvarium intact. Changes of nasal septal deviation noted. Orbits symmetric correlate for prior surge ry. Small hypodensity within the basal ganglia suggestive of remote lacunar infarct. Cerebellar tonsi ls low-lying in position at the level of foramen magnum and there is a partially empty sella turcica. IMPRESSION: DEGENERATIVE AND NONSPECIFIC WHITE MATTER CHANGES MOST TYPICAL REMOTE ISCHEMIA. NO ACUTE HEMORRHAGE O R MASS EFFECT.
[2021-03-31 16:43] LABS: Glucose,Whole Blood 272 mg/dL (75-99)
[2021-03-31 19:49] LABS: Glucose,Whole Blood 229 mg/dL (75-99)
[2021-03-31] MEDS: TAMSULOSIN 0.4 MG CAP.ER.24H PO SCH (21:02)
[2021-03-31] MEDS: ATORVASTATIN 10 MG TAB PO SCH (21:02)
--- NOTE | 2021-03-31 21:22 | P.HPIM ---
History of Present Illness H&P Date: 03/31/21 Chief Complaint: Staring out This is a pleasant 18-year-old patient who follows with Dr. Arjun Malhotra. Patient's manager domestic is out of town. at the bedside. corrobarate the history. Chronic stable medical conditions include CAD, diabetes, GERD, hyperlipidemia, hypertension, osteoarthritis, carcinoid tumor, CAD with stent, PAD. Patient and was sitting down. When the noticed the the patient was sitting of the recliner started stating out of the . In for a few minutes. He would nostras responding. I Looking out. She took his blood pressure was 2 83 x 1 30. She noticed very slight right facial drooping. Repeat blood pressure was lower. She called her son and with his tractor get him up patient couldn't stand felt like noodles. The whole episode lasted for about 45 minutes to an hour. EMS was called out. Patient took a look off colored. Patient was initially taken to [facility]. He is found to aspirate of troponin leak and was sent down here. Patient denied any chest pain or palpitation. Patient does not remember the episode. There was no tongue biting no shaking no incontinence. No prior history of head injury or seizure. Review of systems: GEN.: Tired EYES: None HEENT: None NECK: None RESPIRATORY: None CARDIOVASCULAR: None GASTROINTESTINAL: None GENITOURINARY: None MUSCULOSKELETAL: Joint pains LYMPHATICS: None HEMATOLOGICAL: None PSYCHIATRY: None NEUROLOGICAL: No focal weakness, no headache no change in vision Past medical history to include: CAD, diabetes, GERD, hypertension, hyperlipidemia, osteoarthritis, carcinoid tumor, back pain, CAD with stent, CABG endarterectomy, fem-fem popliteal bypass, Social history: Patient smoked for 40 years stopped 20 years ago. One pack a day. No alcohol. . Family history: Reviewed, noncontributory to presentation Physical examination: VITAL SIGNS: 98.2, 72, 18, 142/69, 98% room air GENERAL: BMI 24.4, laying in bed, awake comfortable. EYES: Pupils equal. Conjunctiva normal. HEENT: External appearance of nose and ears normal, oral cavity grossly normal. NECK: JVD not raised; masses not palpable. HEART: First and second heart sounds are normal; no edema. LUNGS: Respiratory rate normal; clear to auscultation. ABDOMEN: Soft, nontender, liver spleen not palpable, no masses palpable. PSYCH: Alert and oriented x3; mood and affect normal. MUSCULOSKELETAL:No Clubbing/cyanosis;muscles-grossly intact. Evidence of OA NEUROLOGICAL: Cranial nerves grossly intact; no facial asymmetry, power and sensation grossly intact. LYMPHATICS: No lymph nodes palpable in the axilla and neck INVESTIGATIONS, reviewed in the clinical context: White count 7.9 hemoglobin 9.9 platelets 399 potassium 5 creatinine 1.25 Troponin I 0.301, 0.293, 0.241 Coronavirus [PCR]: Not detected EKG tracing personally reviewed by me-no sinus syndrome. Flipped T waves in lead V1 and V2 2-D echocardiogram moderate concentric LVH. Multiple wall motion abnormality. EF 45-50% mitral annual calcification. Computed tomography scan of the brain without contrast: Chronic changes. Nothing acute. Assessment and plan: -This patient presented with an episode of staring out not responding for good 45 minutes to an hour. Patient had losses color. No shaking episode. No tongue biting or incontinence. Patient's floppy like in total. This could be underlying arrhythmia. Also epilepsies the differential. Since there are no focal signs stroke unlikely. Computed tomography scan of the brain unremarkable. EEG -Positive troponin is setting of CK D with no cardiac symptoms. Doubt ACS -CAD with prior history of stent Aspirin, Plavix, Toprol-XL. 2-D echocardiogram pending multiple wall motion abnormalities. 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 NovoLog mix 70/30. Follow Accu-Cheks and scale -GERD Omeprazole 20 mg a day -Hyperlipidemia Zocor 10 mg daily at bedtime -Essential hypertension Zestril 5 mg a day Toprol-XL 50 mg a day -Primary osteoarthritis Pain medication as needed -Peripheral arterial disease by restrictive intervention Aspirin, Plavix, Zocor Home medications resumed. Follow Accu-Cheks. Cardiology consulted. Computed tomography scan brain unremarkable. EEG ordered. Care was discussed with the patient and at the bedside. Questions answered. Check B12 and iron studie s. Telemetry check for arrhythmias Past Medical History Past Medical History: Coronary Artery Disease (CAD), Cancer, Diabetes Mellitus, GERD/Reflux, Hyperlipidemia, Hypertension, Osteoarthritis (OA) Additional Past Medical History / Comment(s): APPENDIX -CARCENOID TUMOR, BACK PAIN History of Any Multi-Drug Resistant Organisms: None Reported Past Surgical History: Appendectomy, Cholecystectomy, Heart Catheterization With Stent Additional Past Surgical History / Comment(s): CAROTID ENDARTECTOMY, BILATERAL LEGS- PTBA POSS PTCA , FEM-FEMORAL POPITEAL BYPASS Past Anesthesia/Blood Transfusion Reactions: No Reported Reaction Date of Last Stent Placement:: AUGUST 2016 Past Psychological History: Anxiety Smoking Status: Former smoker Past Alcohol Use History: None Reported Past Drug Use History: None Reported - Past Family History Mother Family Medical History: No Reported History Medications and Allergies Home Medications Medication Instructions Recorded Confirmed Type Aspirin 81 mg PO DAILY 06/27/17 03/30/21 History Clopidogrel [Plavix] 75 mg PO DAILY 06/27/17 03/30/21 History HYDROcodone/APAP 7.5-325MG [[place] 1 tab PO Q6H PRN 06/27/17 03/30/21 History 7.5-325] Insulin Aspart Protam & Aspart 20 unit SQ AC-SUPPER 06/27/17 03/30/21 History [NovoLOG MIX 70-30 Flexpen] Insulin Aspart Protam & Aspart 25 unit SQ AC-BRKFST 06/27/17 03/30/21 History [NovoLOG MIX 70-30 Flexpen] Metoprolol Succinate [Toprol XL] 50 mg PO DAILY 03/30/21 03/30/21 History Omeprazole 20 mg PO DAILY 03/30/21 03/30/21 History Simvastatin [Zocor] 10 mg PO HS 03/30/21 03/30/21 History Tamsulosin [Flomax] 0.4 mg PO HS 03/30/21 03/30/21 History lisinopriL [Zestril] 5 mg PO DAILY 03/30/21 03/30/21 History metFORMIN HCL 500 mg PO DAILY 03/30/21 03/30/21 History Allergies Allergy/AdvReac Type Severity Reaction Status Date / Time No Known Allergies Allergy Verified 03/30/21 12:40 Physical Exam Vitals: Vital Signs Temp Pulse Pulse Resp BP BP Pulse Ox 03/31/21 08:00 74 16 164/71 99 03/31/21 04:00 72 18 170/69 98 03/31/21 02:00 18 0216/22 00:00 98 F 71 18 167/63 100 03/30/21 21:54 97.6 F 74 18 168/61 98 03/30/21 21:09 98.2 F 74 16 145/77 97 03/30/21 20:00 18 03/30/21 18:36 98.2 F 71 18 165/78 100 03/30/21 15:30 98.2 F 76 20 136/87 97 03/30/21 13:20 70 18 143/73 99 03/30/21 11:49 98.2 F 72 18 142/69 98 Intake and Output 03/30/21 03/31/21 03/31/21 22:59 06:59 14:59 Other: Voiding Method Toilet Toilet Urinal Urinal # Voids 0 1 Weight 77.111 kg Results CBC & Chem 7: 03/31/21 08:04 03/31/21 08:04 Labs: Abnormal Lab Results - Last 24 Hours (Table) 03/30/21 03/30/21 03/30/21 Range/Units 11:49 11:49 11:49 RBC 2.79 L (4.30-5.90) m/uL Hgb 9.4 L (13.0-17.5) gm/dL Hct 28.0 L (39.0-53.0) % MCV 100.5 H (80.0-100.0) fL APTT 21.3 L (22.0-30.0) sec Sodium 134 L (137-145) mmol/L Potassium 5.4 H (3.5-5.1) mmol/L Chloride (98-107) mmol/L BUN 21 H (9-20) mg/dL Creatinine 1.32 H (0.66-1.25) mg/dL Glucose 190 H (74-99) mg/dL POC Glucose (mg/dL) (75-99) mg/dL AST 16 L (17-59) U/L Troponin I (0.000-0.034) ng/mL Total Protein 6.2 L (6.3-8.2) g/dL Albumin 3.2 L (3.5-5.0) g/dL 03/30/21 03/30/21 03/30/21 Range/Units 11:49 15:09 18:44 RBC (4.30-5.90) m/uL Hgb (13.0-17.5) gm/dL Hct (39.0-53.0) % MCV (80.0-100.0) fL APTT (22.0-30.0) sec Sodium (137-145) mmol/L Potassium (3.5-5.1) mmol/L Chloride (98-107) mmol/L BUN (9-20) mg/dL Creatinine (0.66-1.25) mg/dL Glucose (74-99) mg/dL POC Glucose (mg/dL) (75-99) mg/dL AST (17-59) U/L Troponin I 0.301 H* 0.293 H* 0.241 H* (0.000-0.034) ng/mL Total Protein (6.3-8.2) g/dL Albumin (3.5-5.0) g/dL 03/30/21 03/31/21 03/31/21 Range/Units 19:02 06:42 08:04 RBC 2.98 L (4.30-5.90) m/uL Hgb 9.9 L (13.0-17.5) gm/dL Hct 30.2 L (39.0-53.0) % MCV 101.5 H (80.0-100.0) fL APTT (22.0-30.0) sec Sodium (137-145) mmol/L Potassium (3.5-5.1) mmol/L Chloride (98-107) mmol/L BUN (9-20) mg/dL Creatinine (0.66-1.25) mg/dL Glucose (74-99) mg/dL POC Glucose (mg/dL) 166 H 166 H (75-99) mg/dL AST (17-59) U/L Troponin I (0.000-0.034) ng/mL Total Protein (6.3-8.2) g/dL Albumin (3.5-5.0) g/dL 03/31/21 Range/Units 08:04 RBC (4.30-5.90) m/uL Hgb (13.0-17.5) gm/dL Hct (39.0-53.0) % MCV (80.0-100.0) fL APTT (22.0-30.0) sec Sodium (137-145) mmol/L Potassium (3.5-5.1) mmol/L Chloride 109 H (98-107) mmol/L BUN (9-20) mg/dL Creatinine (0.66-1.25) mg/dL Glucose 180 H (74-99) mg/dL POC Glucose (mg/dL) (75-99) mg/dL AST (17-59) U/L Troponin I (0.000-0.034) ng/mL Total Protein (6.3-8.2) g/dL Albumin (3.5-5.0) g/dL Thrombosis Risk Factor Assmnt - Choose All That Apply Any of the Below Risk Factors Present?: Yes Each Risk Factor Represents 3 Points: Age 75 years or older Thrombosis Risk Factor Assessment Total Risk Factor Score: 3 Thrombosis Risk Factor Assessment Level: Moderate Risk
[2021-04-01] MEDS: INSULN ASP PRT/INSULIN ASPART 100 UNIT/ML 10 ML VIAL SQ SCH ×2 (05:52→17:11)
[2021-04-01] MEDS: HYDROcodone/APAP 7.5-325MG 1 EACH TAB PO PRN ×4 (05:53→22:50)
[2021-04-01] MEDS: PANTOPRAZOLE 40 MG TABLET PO SCH (05:54)
[2021-04-01 06:25] LABS: Glucose,Whole Blood 163 mg/dL (75-99)
[2021-04-01] MEDS: INSULIN ASPART (NovoLOG) 100 UNIT/ML VIAL SQ SCH ×5 (06:33→17:36)
[2021-04-01] MEDS: METOPROLOL SUCCINATE (ER) 50 MG TAB.ER.24H PO SCH (08:14)
[2021-04-01] MEDS: ASPIRIN 81 MG PO SCH (08:14)
[2021-04-01] MEDS: CLOPIDOGREL 75 MG TAB PO SCH (08:14)
[2021-04-01] MEDS: lisinopriL 10 MG TAB PO SCH (08:14)
[2021-04-01] MEDS: ISOSORBIDE MONONITRATE ER 30 MG TAB.ER.24H PO SCH (08:14)
[2021-04-01 08:48] LABS: Calcium 9.1 mg/dL (8.4-10.2); Potassium 4.4 mmol/L (3.5-5.1)
[2021-04-01] MEDS ORDERED: ALPRAZolam 0.25 MG TAB PO PRN (10:04)
[2021-04-01] MEDS ORDERED: NITROGLYCERIN SL TABS 0.4 MG TAB SUBLINGUAL PRN (10:04)
[2021-04-01] MEDS ORDERED: SODIUM CHLORIDE 0.9% 1,000 ML IV STA (10:06)
[2021-04-01 10:28] VITALS: BMI 24.3
[2021-04-01 12:16] LABS: Glucose,Whole Blood 226 mg/dL (75-99)
--- NOTE | 2021-04-01 12:56 | P.PN ---
Subjective HISTORY OF PRESENTING ILLNESS This is a pleasant 80-year-old male past medical history significant for coronary artery disease status post PCI to RCA in 2017, former smoker, type 2 diabetes, hypertension, dyslipidemia, chronic back pain, severe symptomatic peripheral artery disease status post left lower extremity atherectomy EVENT MARKETING REPRESENTATIVE and stenting of SFA in April 2020, stenting in distal left SFA in 11/2011, stenting of the right common iliac artery in 09/2011, carotid artery disease status post endarterectomy bilaterally. He follows in the office with Dr. Terry Rogers in [place]. We have been asked to see in consultation for elevated troponin. Patient presents to [facility] as a transfer from [facility]. Patient does not recall the event, he remembers feeling "out of it" then he was at [facility]. He did take a [place] and half of an marijuana edible cookie. Apparently,his son gave him a marijuana edible cookie. After this, he had symptoms of altered mental status and apparently became obtunded. EMS was called, patient was brought to [facility]. Troponin was drawn and initially was 0.036-->0.034-->0.22. Transferred to [facility]. Troponins here were 0.29 and 0.24. -Echocardiogram revealed EF 45-50%, mid inferior, apical inferior/septum, mid septal hypokinesis, mild mitral regurgitation, mild tricuspid regurgitation, trace to mild aortic regurgitation. 04/01/2021 Patient seen and examined at bedside denies any chest pain. Records were obtained from patient's resident services coordinator that revealed in December 2019 patient had preserved LV ejection fraction at 65%. Labs sodium 137, potassium 4.4, BUN 18, serum creatinine 1.3 Blood pressure 153/74, heart rate 78, afebrile, oxygen saturations 99% on room air PHYSICAL EXAMINATION Vitals reviewed CONSTITUTIONAL: No apparent distress. HEENT: Neck Supple. No JVD. No carotid bruit. CHEST EXAMINATION: Lungs are clear to auscultation. No chest wall tenderness is noted on palpation or with deep breathing. HEART EXAMINATION: Regular rate and rhythm. S1, S2 heard. No murmurs, gallops or rub. ABDOMEN: Soft, nontender. Positive bowel sounds. EXTREMITIES: 2+ peripheral pulses, no lower extremity edema and no calf tenderness. NEUROLOGIC EXAMINATION: Patient is awake, alert and oriented x3. ASSESSMENT Elevated troponin, concerning for NSTEMI with new cardiomyopathy of EF 45-50% with wall motion abnormalities Cardiomyopathy, plan for cath today to evaluate coronary arteries Acute kidney injury Marijuana use Coronary artery disease status post PCI to RCA in 2016 Former smoker Severe symptomatic peripheral artery disease status post left lower extremity atherectomy EVENT MARKETING REPRESENTATIVE and stenting of SFA in April 2020, stenting in distal left SFA in 11/2011, stenting of the right common iliac artery in 09/2011 Carotid artery disease status post endarterectomy bilaterally. Type 2 diabetes Hypertension Dyslipidemia Chronic back pain. PLAN We recommend cardiac catheterization at this time, patient is agreeable. I have discussed the risks, benefits and alternative therapies for the above- mentioned procedure and for both sedation/analgesia as well as necessary blood product administration, if indicated, as they pertain to this patient. The patient has indicated understanding and acceptance of the risks and procedures discussed. Questions have been answered appropriately and he is agreeable to move forward with the above-stated procedure. Monitor renal function and electrolytes. Further recommendations based on clinical course Nurse practitioner note has been reviewed by physician. Signing provider agrees with the documented findings, assessment, and plan of care. Objective - Vital Signs Vital signs: Vital Signs Temp 97.9 F 03/31/21 20:00 Pulse 72 04/01/21 08:00 Resp 16 04/01/21 08:00 BP 152/67 04/01/21 08:00 Pulse Ox 97 04/01/21 08:00 Intake & Output 03/31/21 04/01/21 04/01/21 18:59 06:59 18:59 Intake Total 610 Balance 610 Weight 77.111 kg Intake: Oral 610 Other: Voiding Method Toilet Toilet Toilet Urinal Urinal Urinal # Voids 4 1 - Labs CBC & Chem 7: 03/31/21 08:04 04/01/21 08:14 Labs: Abnormal Lab Results - Last 24 Hours (Table) 03/31/21 03/31/21 04/01/21 Range/Units 16:41 19:48 06:22 Chloride (98-107) mmol/L Creatinine (0.66-1.25) mg/dL Glucose (74-99) mg/dL POC Glucose (mg/dL) 272 H 229 H 163 H (75-99) mg/dL 04/01/21 04/01/21 Range/Units 08:14 11:43 Chloride 109 H (98-107) mmol/L Creatinine 1.34 H (0.66-1.25) mg/dL Glucose 164 H (74-99) mg/dL POC Glucose (mg/dL) 226 H (75-99) mg/dL
--- NOTE | 2021-04-01 13:50 | EEG ---
ELECTROENCEPHALOGRAM REPORT DATE OF SERVICE: 04/01/2021. CLINICAL HISTORY: This is an 80-year-old gentleman with reported altered mental status. The video EEG is obtained to evaluate for seizure epileptiform activity. RELEVANT MEDICATION: Patient is not on any antiepileptic drugs. EEG TYPE: A routine 21-channel EEG is performed with video using the 10/20 electrode placement system. DESCRIPTION: Wakefulness and drowsiness are obtained. During awake state the posterior dominant rhythm consists of 8.5 to 9 hertz activity that is well modulated and well sustained. There is no physiological stage II sleep architecture. There is no focal slowing. Interictal and ictal is none. ACTIVATION PROCEDURE: Photic stimulation did not evoke a posterior driving response. There is no abnormality during the photic stimulation. Hyperventilation is not performed. CLINICAL INTERPRETATION: This is a normal routine EEG. There is no focal slowing, epileptiform discharges or seizure on the EEG. Clinical correlation is recommended. JEREMY / ANGEL: [id number] / MTDD
[2021-04-01 16:09] LABS: Glucose,Whole Blood 271 mg/dL (75-99)
--- NOTE | 2021-04-01 16:40 | P.PN ---
Progress Note - Text Progress Note Date: 04/01/21 Chief Complaint: Staring out This is a pleasant 18-year-old patient who follows with Dr. Arjun Malhotra. Patient's personal attendant is out of town. at the bedside. corrobarate the history. Chronic stable medical conditions include CAD, diabetes, GERD, hyperlipidemia, hypertension, osteoarthritis, carcinoid tumor, CAD with stent, PAD. Patient and was sitting down. When the noticed the the patient was sitting of the recliner started stating out of the . In for a few minutes. He would nostras responding. I Looking out. She took his blood pressure was 2 83 x 1 30. She noticed very slight right facial drooping. Repeat blood pressure was lower. She called her son and with his tractor get him up patient couldn't stand felt like noodles. The whole episode lasted for about 45 minutes to an hour. EMS was called out. Patient took a look off colored. Patient was initially taken to [facility]. He is found to aspirate of troponin leak and was sent down here. Patient denied any chest pain or palpitation. Patient does not remember the episode. There was no tongue biting no shaking no incontinence. No prior history of head injury or seizure. April 01: No arrhythmia was reported. 2-D echocardiogram showed multiple wa ll motion abnormalities. Per cardiology notes his 2-D echocardiogram showed preserved LV function with normal wall motion in December 2019. Decided to proceed with cardiac catheterization. Patient's EEG was negative for seizure activity. This was discussed with the patient and at the bedside. No further episodes of altered sensorium Active Medications Acetaminophen (Acetaminophen Tab 325 Mg Tab) 650 mg PO Q6HR PRN PRN Reason: Mild Pain or Fever > 100.5 Hydrocodone Bitart/Acetaminophen (Hydrocodone/Apap 7.5-325mg 1 Each Tab) 1 each PO Q6H PRN PRN Reason: Pain Last Admin: 04/01/21 10:42 Dose: 1 each Documented by: Alprazolam (Alprazolam 0.25 Mg Tab) 0.25 mg PO Q6HR PRN PRN Reason: Anxiety Alprazolam (Alprazolam 0.25 Mg Tab) 0.25 mg PO Q6HR PRN PRN Reason: Mild Anxiety Aspirin (Aspirin 81 Mg) 81 mg PO DAILY [place] Last Admin: 04/01/21 08:14 Dose: 81 mg Documented by: Atorvastatin Calcium (Atorvastatin 10 Mg Tab) 10 mg PO HS [facility] Last Admin: 03/31/21 21:02 Dose: 10 mg Documented by: Calcium Carbonate/Glycine (Calcium Carbonate 500 Mg Chewable) 1,000 mg PO Q4HR PRN PRN Reason: Dyspepsia Clopidogrel Bisulfate (Clopidogrel 75 Mg Tab) 75 mg PO DAILY [facility] Last Admin: 04/01/21 08:14 Dose: 75 mg Documented by: Heparin Sodium (Porcine) 10, (000 unit/ Sodium Chloride) 1,001 mls @ 999 mls/hr IRRIGATION ONCE PRN PRN Reason: INTRA-OP Stop: 04/02/21 23:00 Heparin Sodium (Porcine) 2,500 (unit/ Sodium Chloride) 250.5 mls @ 250 mls/hr IRRIGATION ONCE PRN PRN Reason: INTRA-OP Stop: 04/02/21 23:00 Sodium Chloride (Saline 0.9%) 1,000 mls @ 75 mls/hr IV [id number] Stop: 04/01/21 23:25 Last Admin: 04/01/21 12:44 Dose: 75 mls/hr Documented by: Insulin Aspart (Insuln Asp Prt/Insulin Aspart 100 Unit/Ml 10 Ml Vial) 20 unit SQ AC-SUPPER [facility] Last Admin: 03/31/21 17:49 Dose: 20 unit Documented by: Insulin Aspart (Insuln Asp Prt/Insulin Aspart 100 Unit/Ml 10 Ml Vial) 25 unit SQ AC-BRKFST [facility] Last Admin: 04/01/21 05:52 Dose: Not Given Documented by: Insulin Aspart (Insulin Aspart (Novolog) 100 Unit/Ml Vial) 0 unit SQ AC-TID [facility]; Protocol Last Admin: 04/01/21 12:44 Dose: Not Given Documented by: Isosorbide Mononitrate (Isosorbide Mononitrate Er 30 Mg Tab.Er.24h) 30 mg PO DAILY [facility] Last Admin: 04/01/21 08:14 Dose: 30 mg Documented by: Lactulose (Lactulose 20 Gm/30 Ml Cup) 20 gm PO DAILY PRN PRN Reason: Constipation Lisinopril (Lisinopril 10 Mg Tab) 10 mg PO DAILY [facility] Last Admin: 04/01/21 08:14 Dose: 10 mg Documented by: Melatonin (Melatonin 3 Mg Tablet) 3 mg PO HS PRN PRN Reason: Insomnia Metoprolol Succinate (Metoprolol Succinate (Er) 50 Mg Tab.Er.24h) 50 mg PO DAILY [facility] Last Admin: 04/01/21 08:14 Dose: 50 mg Documented by: Miscellaneous Information (Rx Info: Iv Contrast Was Given 1 Each Misc) 1 each MISCELLANE DAILY PRN PRN Reason: Per Protocol Stop: 04/02/21 12:22 Naloxone HCl (Naloxone 0.4 Mg/Ml 1 Ml Vial) 0.2 mg IV Q2M PRN PRN Reason: Opioid Reversal Nitroglycerin (Nitroglycerin Sl Tabs 0.4 Mg Tab) 0.4 mg SUBLINGUAL Q5M PRN PRN Reason: Chest Pain Ondansetron HCl (Ondansetron 4 Mg/2 Ml Vial) 4 mg IVP Q8HR PRN PRN Reason: Nausea And Vomiting Pantoprazole Sodium (Pantoprazole 40 Mg Tablet) 40 mg PO DAILY@0730 [facility] Last Admin: 04/01/21 05:54 Dose: 40 mg Documented by: Tamsulosin HCl (Tamsulosin 0.4 Mg Cap.Er.24h) 0.4 mg PO HS [facility] Last Admin: 03/31/21 21:02 Dose: 0.4 mg Documented by: Past medical history to include: CAD, diabetes, GERD, hypertension, hyperlipidemia, osteoarthritis, carcinoid tumor, back pain, CAD with stent, CABG endarterectomy, fem-fem popliteal bypass, Social history: Patient smoked for 40 years stopped 20 years ago. One pack a day. No alcohol. . Family history: Reviewed, noncontributory to presentation Physical examination: VITAL SIGNS: Afebrile, 78, 16, 153/74, 99% room air GENERAL: Sitting up in bed, awake, comfortable EYES: Pupils equal. Conjunctiva normal. HEENT: External appearance of nose and ears normal, oral cavity grossly normal. NECK: JVD not raised; masses not palpable. HEART: First and second heart sounds are normal; no edema. LUNGS: Respiratory rate normal; clear to auscultation. ABDOMEN: Soft, nontender, liver spleen not palpable, no masses palpable. PSYCH: Alert and oriented x3; mood and affect normal. MUSCULOSKELETAL:No Clubbing/cyanosis;muscles-grossly intact. Evidence of OA INVESTIGATIONS, reviewed in the clinical context: April 01: Creatinine 1.34 White count 7.9 hemoglobin 9.9 platelets 399 potassium 5 creatinine 1.25 Troponin I 0.301, 0.293, 0.241 Coronavirus [PCR]: Not detected EKG tracing personally reviewed by me-no sinus syndrome. Flipped T waves in lead V1 and V2 2-D echocardiogram moderate concentric LVH. Multiple wall motion abnormality. EF 45-50% mitral annual calcification. Computed tomography scan of the brain without contrast: Chronic changes. Nothing acute. Assessment and plan: -This patient presented with an episode of staring out not responding for good 45 minutes to an hour. Patient had losses color. No shaking episode. No tongue biting or incontinence. Patient's floppy like noodle. This could be underlying arrhythmia. Since there are no focal signs stroke unlikely. Computed tomography scan of the brain unremarkable. EEG: Unremarkable 2-D echo showing multiple wall motion abnormalities. 4 cardiac catheterization -Positive troponin is setting of CK D with no cardiac symptoms. 2-D echo showing wall motion abnormality compared to previous echo. 4 cardiac catheterization. -CAD with prior history of stent Aspirin, Plavix, Toprol-XL. 2-D echocardiogram showing multiple wall motion abnormalities. 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 NovoLog mix 70/30. Follow Accu-Cheks and scale -GERD Omeprazole 20 mg a day -Hyperlipidemia Zocor 10 mg daily at bedtime -Essential hypertension Zestril 5 mg a day Toprol-XL 50 mg a day -Primary osteoarthritis Pain medication as needed -Peripheral arterial disease by restrictive intervention Aspirin, Plavix, Zocor Pending B12 and iron studies. Telemetry. Cardiac catheterization later today. Discussed with the patient and .
[2021-04-01 18:00] LABS: % Iron Saturation 27.39 (15.00-50.00)
[2021-04-01] MEDS: ATORVASTATIN 10 MG TAB PO SCH (20:30)
[2021-04-01] MEDS: TAMSULOSIN 0.4 MG CAP.ER.24H PO SCH (20:30)
[2021-04-01 20:52] LABS: Glucose,Whole Blood 107 mg/dL (75-99)
[2021-04-02 00:22] LABS: Glucose,Whole Blood 95 mg/dL (75-99)
[2021-04-02 02:41] LABS: Glucose,Whole Blood 132 mg/dL (75-99)
[2021-04-02] MEDS: ISOSORBIDE MONONITRATE ER 30 MG TAB.ER.24H PO SCH (03:15)
[2021-04-02 04:50] VITALS: TEMP 98.1
[2021-04-02] MEDS: HYDROcodone/APAP 7.5-325MG 1 EACH TAB PO PRN ×2 (05:02→10:58)
[2021-04-02 06:02] LABS: Glucose,Whole Blood 157 mg/dL (75-99)
[2021-04-02] MEDS: INSULIN ASPART (NovoLOG) 100 UNIT/ML VIAL SQ SCH ×2 (06:03→12:11)
[2021-04-02] MEDS: INSULN ASP PRT/INSULIN ASPART 100 UNIT/ML 10 ML VIAL SQ SCH (06:03)
[2021-04-02] MEDS: ASPIRIN 81 MG PO SCH (06:08)
[2021-04-02] MEDS: PANTOPRAZOLE 40 MG TABLET PO SCH (06:08)
[2021-04-02] MEDS: METOPROLOL SUCCINATE (ER) 50 MG TAB.ER.24H PO SCH (06:08)
[2021-04-02] MEDS: lisinopriL 10 MG TAB PO SCH (06:08)
[2021-04-02] MEDS: CLOPIDOGREL 75 MG TAB PO SCH (06:09)
[2021-04-02] MEDS ORDERED: HEPARIN SODIUM,PORCINE 2,500 UNIT in SODIUM CHLORIDE 0.9% 250 ML IRRIGATION PRN (07:00)
[2021-04-02] MEDS ORDERED: HEPARIN SODIUM,PORCINE 10,000 UNIT in SODIUM CHLORIDE 0.9% 1,000 ML IRRIGATION PRN (07:00)
[2021-04-02 07:10] LABS: Basophils # (A) 0.1 k/uL (0-0.2); Basophils % (A) 1 %; Eosinophils # (A) 0.2 k/uL (0-0.7); Eosinophils % (A) 2 %; HCT 26.6 % (39.0-53.0); HGB 8.9 gm/dL (13.0-17.5); Lymphocytes # (A) 1.4 k/uL (1.0-4.8); Lymphocytes % (A) 17 %; MCH 33.8 pg (25.0-35.0); MCHC 33.4 g/dL (31.0-37.0); MCV 101.1 fL (80.0-100.0); Macrocytosis Slight; Mean Platelet Volume 7.6; Monocytes # (A) 0.6 k/uL (0-1.0); Monocytes % (A) 6 %; Neutrophils # (A) 6.2 k/uL (1.3-7.7); Neutrophils % (A) 72 %; Platelet Count 366 k/uL (150-450); RBC 2.63 m/uL (4.30-5.90); RDW 14.2 % (11.5-15.5); WBC 8.6 k/uL (3.8-10.6)
[2021-04-02 07:22] LABS: Calcium 8.9 mg/dL (8.4-10.2); Potassium 4.7 mmol/L (3.5-5.1)
[2021-04-02] MEDS ORDERED: IV FLUID CONTINUATION 1,000 ML IV ONE ×2 (07:23)
[2021-04-02] MEDS ORDERED: VERAPAMIL 2.5 MG/ML 2 ML AMP ONE (07:27)
[2021-04-02] MEDS ORDERED: LIDOCAINE 1% INJ 10MG/ML (20 ML MDV) ONE (07:27)
[2021-04-02] MEDS ORDERED: fentaNYL (PF) 50 MCG/ML 2 ML AMP ONE (07:35)
[2021-04-02] MEDS ORDERED: HEPARIN SODIUM 1,000 UN/ML (10ML VL) ONE (07:35)
[2021-04-02] MEDS ORDERED: fentaNYL (PF) 50 MCG/ML 2 ML AMP IV ONE (07:52)
[2021-04-02] MEDS ORDERED: LIDOCAINE 1% INJ 10MG/ML (20 ML MDV) SQ ONE ×2 (07:52→07:55)
[2021-04-02] MEDS ORDERED: MIDAZOLAM 2 MG/2 ML VIAL IV ONE (07:52)
[2021-04-02] MEDS ORDERED: VERAPAMIL SYRINGE (5 MG/10 ML) INTRAARTER ONE (07:57)
[2021-04-02] MEDS ORDERED: HEPARIN SODIUM 1,000 UN/ML (10ML VL) IV ONE (08:00)
[2021-04-02] MEDS ORDERED: IOPAMIDOL-370 125ML BTL INJ ONE (08:12)
[2021-04-02] MEDS ORDERED: RX INFO: IV CONTRAST WAS GIVEN 1 EACH MISC MISCELLANE PRN (08:29)
[2021-04-02] MEDS ORDERED: SODIUM CHLORIDE 0.9% 1,000 ML IV SCH (08:30)
[2021-04-02 11:39] VITALS: PULSE 65; RESP 15
[2021-04-02 12:10] LABS: Glucose,Whole Blood 184 mg/dL (75-99)
[2021-04-02 12:11] VITALS: BP 149/67
--- NOTE | 2021-04-02 16:37 | P.DS ---
Providers Date of admission: 03/30/21 13:51 Expected date of discharge: 04/02/21 Attending physician: Rogers Linder Consults: 03/30/21 13:53 Consult Physician Urgent Consulting Provider: [facility] Consult Reason/Comments: nstemi Do you want consulting provider notified?: Yes Primary care physician: Arjun Malhotra [facility] Course: 80-year-old male past medical history significant for coronary artery disease status post PCI to RCA in 2016, former smoker, type 2 diabetes, hypertension, dyslipidemia, chronic back pain, severe symptomatic peripheral artery disease status post left lower extremity atherectomy [employer] and stenting of SFA in April 2020, stenting in distal left SFA in 11/2011, stenting of the right common iliac artery in 09/2011, carotid artery disease status post endarterectomy bilaterally. He follows in the office with Dr. Terry Rogers in [place]. We have been asked to see in consultation for elevated troponin. Patient presents to [facility] as a transfer from [facility]. Patient does not recall the event, he remembers feeling "out of it" then he was at [facility]. He did take a [place] and half of an marijuana edible cookie. Apparently,his son gave him a marijuana edible cookie. After this, he had symptoms of altered mental status and apparently became obtunded. EMS was called, patient was brought to [facility]. Troponin was drawn and initially was 0.036-->0.034-->0.22. Transferred to [facility]. Troponins here were 0.29 and 0.24. -Echocardiogram revealed EF 45-50%, mid inferior, apical inferior/septum, mid s eptal hypokinesis, mild mitral regurgitation, mild tricuspid regurgitation, trace to mild aortic regurgitation. Patient was evaluated by cardiology and was recommended and underwent cardiac catheterization which did reveal occlusion of the stent with collateral circulation; Imdur was added and lisinopril was increased to 10 mg daily; patient is cleared for discharge per cardiology for outpatient follow-up Patient Condition at Discharge: Serious Plan - Discharge Summary Discharge Rx Participant: No New Discharge Prescriptions: New Nitroglycerin Sl Tabs [Nitrostat] 0.4 mg SUBLINGUAL Q5M PRN #30 tab PRN Reason: Chest Pain Isosorbide Mononitrate ER [Imdur] 30 mg PO DAILY #30 tablet lisinopriL [Zestril] 10 mg PO DAILY #30 tab Continue Insulin Aspart Protam & Aspart [NovoLOG MIX 70-30 Flexpen] 20 unit SQ AC- SUPPER HYDROcodone/APAP 7.5-325MG [[place] 7.5-325] 1 tab PO Q6H PRN PRN Reason: Pain Insulin Aspart Protam & Aspart [NovoLOG MIX 70-30 Flexpen] 25 unit SQ AC- BRKFST Aspirin 81 mg PO DAILY Clopidogrel [Plavix] 75 mg PO DAILY Simvastatin [Zocor] 10 mg PO HS Metoprolol Succinate [Toprol XL] 50 mg PO DAILY Tamsulosin [Flomax] 0.4 mg PO HS metFORMIN HCL 500 mg PO DAILY Omeprazole 20 mg PO DAILY Discontinued lisinopriL [Zestril] 5 mg PO DAILY Discharge Medication List Aspirin 81 mg PO DAILY 06/27/17 [History] Clopidogrel [Plavix] 75 mg PO DAILY 06/27/17 [History] HYDROcodone/APAP 7.5-325MG [[place] 7.5-325] 1 tab PO Q6H PRN 06/27/17 [History] Insulin Aspart Protam & Aspart [NovoLOG MIX 70-30 Flexpen] 20 unit SQ AC-SUPPER 06/27/17 [History] Insulin Aspart Protam & Aspart [NovoLOG MIX 70-30 Flexpen] 25 unit SQ AC-BRKFST 06/27/17 [History] Metoprolol Succinate [Toprol XL] 50 mg PO DAILY 03/30/21 [History] Omeprazole 20 mg PO DAILY 03/30/21 [History] Simvastatin [Zocor] 10 mg PO HS 03/30/21 [History] Tamsulosin [Flomax] 0.4 mg PO HS 03/30/21 [History] metFORMIN HCL 500 mg PO DAILY 03/30/21 [History] Isosorbide Mononitrate ER [Imdur] 30 mg PO DAILY #30 tablet 04/02/21 [Rx] Nitroglycerin Sl Tabs [Nitrostat] 0.4 mg SUBLINGUAL Q5M PRN #30 tab 04/02/21 [Rx] lisinopriL [Zestril] 10 mg PO DAILY #30 tab 04/02/21 [Rx] Follow up Appointment(s)/Referral(s): Arjun Malhotra MD [Primary Care Provider] - 1-2 days Patient Instructions/Handouts: After Radial Heart Catheterization (GEN) Discharge Disposition: HOME SELF-CARE
--- NOTE | 2021-04-04 16:16 | P.CARDCATH ---
Date of Procedure: 04/04/21 Preoperative Diagnosis: Non-STEMI Postoperative Diagnosis: Total occlusion of the RCA with a moderate to severe disease in the distal circumflex Procedure(s) Performed: Left heart catheterization with selective coronary arteriography without left ventriculography Description of Procedure: HISTORY: This is a 80-year-old gentleman with history of ischemic heart disease and peripheral vascular disease was admitted to the hospital with altered mental status and evidence of troponin elevation, suggestive of possible stent non- STEMI. Echo Cardigan showed a new wall motion abnormality with hypokinesis of the inferior wall compared to the echocardiogram done in 2019. Patient is advised to have a cardiac catheterization to rule out any progression of ischemic heart disease CONSENT:I have discussed the risks, benefits and alternative therapies for the above-mentioned procedure and for both sedation/analgesia as well as necessary blood product administration, if indicated, as they pertain to this patient. The patient has indicated understanding and acceptance of the risks and procedures discussed. PROCEDURE: Patient was brought to the lab in a fasting state. Patient was given some IV sedation. The right wrist is infiltrated with lidocaine and right radial artery was entered using Seldinger technique. A 6-Mauritanian catheter was left in place and selective coronary arteriography was performed. Patient tolerated the procedure well. TR band was applied for hemostasis. No immediate complications were noted and patient was transferred to [facility] in a stable condition Conscious Sedation: Versed 1mg Fentanyl 25 g g Duration 14minutes HEMODYNAMICS: The aortic pressure is about 130/70. SELECTIVE CORONARY ARTERIOGRAPHY: LEFT MAIN: Normal length and free of occlusive disease THE LEFT ANTERIOR DESCENDING CORONARY ARTERY: . Fair caliber vessel. Free of any occlusive disease THE LEFT CIRCUMFLEX AND IS CORONARY ARTERY: . Moderate-caliber vessel giving rise to 2 OM branches. The distal circumflex has about 60-70% stenosis involving the origin of second OM branch. The first OM branch ostium also the eccentric 60-70% stenosis THE RIGHT CORONARY ARTERY: . This is totally occluded in the stented area in the midportion. There are collaterals from the left to the right coronary artery LEFT VENTRICULOGRAPHY: Not performed FINAL IMPRESSION: . Total occlusion of the RCA. Moderate disease in the distal circumflex involving the OM branches PLAN: Maximum medical therapy and this factor modification. If patient continues to have chest pains or if there is significant ischemia in the circumflex distribution, further intervention could be considered PROGNOSIS: [Fair
--- NOTE | 2021-04-05 11:29 | CDI ---
Documentation Clarification Form Date: 04/05/21 From: Padmini Amezquita Admit Date: 03/30/2021 01:51:00 PM Patient Name: Mihai Griggs Visit Number: [id number] Discharge Date: 04/02/2021 04:21:00 PM ATTENTION: The Clinical Documentation Specialists (CDI) and [facility] Coding Staff appreciate your assistance in clarifying documentation. Please respond to the clarification below the line at the bottom and electronically sign. The CDI & [facility] Coding staff will review the response and follow-up if needed. Please note: Queries are made part of the Legal Health Record. If you have any questions, please contact the author of this message via ITS. Dr. Nay Park, The patients principal diagnosis the diagnosis that was chiefly responsible for the admission - has not been clearly identified and clarification is requested. The patient presented with the following History/Risk factors: CAD with stent, DM, GERD, HTN, HLD, OA, s/p carotid endarterectomy, fem popliteal bypass Clinical Indicators: Patient and was sitting down. When the noticed the the patient was sitting of the recliner started stating out of the . In for a few minutes. He would nostras responding. I Looking out. She took his blood pressure was 2 83 x 1 30. She noticed very slight right facial drooping. Repeat blood pressure was lower. She called her son and with his tractor get him up patient couldn't stand felt like noodles. The whole episode lasted for about 45 minutes to an hour. EMS was called out. Patient was initially taken to [facility]. He is found to aspirate of troponin leak and was sent down here. Patient denied any chest pain or palpitation. Patient does not remember the episode. Lab findings: Troponin I: 0.301, 0.293, 0.241 Left Heart cath: Total occlusion of the RCA. Moderate disease in the distal circumflex involving the OM branches Vital Signs: T 98.2, P 72, R 18, BP 142/69, O2 98 Treatment: Nitorstat SL tabs, Imdur, Zestril Cardiac Consults: Elevated troponin, trend does not appear to be consistent with acute coronary syndrome, No evidence of ischemia noted on EKG, however EF 45-50% with wall motion abnormalities unclear if this is new In your professional opinion, can you please clarify which diagnosis, after study, was the reason chiefly responsible for the admission? [ ] NSTEMI [ ] Other, please specify [ ] Unable to determine MTDD
== END 2021-04-02 16:21 | disposition home or self-care (01) ==
LOC: EC 11:06 → 3SCARD 13:51 → INTOOBSV 13:51 → 3SCARD 15:37 → UNDODISIN 04-02 16:21
PROVIDERS: ADMIT Hospitalist; ATTEND Hospitalist
DX: R41.82 Altered mental status, unspecified (principal); N17.9 Acute kidney failure, unspecified; I42.9 Cardiomyopathy, unspecified; I25.82 Chronic total occlusion of coronary artery; I25.10 Atherosclerotic heart disease of native coronary artery without angina pectoris; D53.9 Nutritional anemia, unspecified; I12.9 Hypertensive chronic kidney disease with stage 1 through stage 4 chronic kidney disease, or unspecified chronic kidney disease; E11.22 Type 2 diabetes mellitus with diabetic chronic kidney disease; N18.30 Chronic kidney disease, stage 3 unspecified; K21.9 Gastro-esophageal reflux disease without esophagitis; E78.5 Hyperlipidemia, unspecified; M19.91 Primary osteoarthritis, unspecified site; D63.1 Anemia in chronic kidney disease; E11.51 Type 2 diabetes mellitus with diabetic peripheral angiopathy without gangrene; Z79.4 Long term (current) use of insulin; Z20.822 Contact with and (suspected) exposure to COVID-19; I08.3 Combined rheumatic disorders of mitral, aortic and tricuspid valves; F12.90 Cannabis use, unspecified, uncomplicated; D3A.00 Benign carcinoid tumor of unspecified site; J34.2 Deviated nasal septum; R90.82 White matter disease, unspecified; G89.29 Other chronic pain; M54.9 Dorsalgia, unspecified; K59.00 Constipation, unspecified; G47.00 Insomnia, unspecified; F41.9 Anxiety disorder, unspecified; Z79.82 Long term (current) use of aspirin; Z79.02 Long term (current) use of antithrombotics/antiplatelets; Z79.84 Long term (current) use of oral hypoglycemic drugs; Z79.899 Other long term (current) drug therapy; Z90.49 Acquired absence of other specified parts of digestive tract; Z95.5 Presence of coronary angioplasty implant and graft; Z87.891 Personal history of nicotine dependence; Z85.09 Personal history of malignant neoplasm of other digestive organs; Z86.79 Personal history of other diseases of the circulatory system; Z95.828 Presence of other vascular implants and grafts; Z98.890 Other specified postprocedural states
CPT/HCPCS: 96361 ×2; 96360; 99285; 36415; 95816; 93005; 93306; 93454; 83880; 80053; 80048 ×3; 82607; 83540; 83550; 83735; 84484; 85025 ×3; 85610; 85730; 87635; 70450; G0378 ×4; C1894; C1769; J2250; J2001; J3010; J1644; Q9967

== ENCOUNTER → 2021-05-28 | Outpatient (CLI) | payer MEDICARE ==
--- NOTE | 2021-06-02 17:18 | PE ---
Nuclear medicine PET/CT HISTORY: Solitary pulmonary nodule, initial Patient received 10.4 mCi F-18 FDG intravenously and delayed scanning was performed from the skull ba se to the mid thighs. A localization and attenuation correction CT scan was performed. Correlation to CT chest dated 04/21/2021 Average mediastinal uptake is SUV 2.0, average liver uptake SUV is 2.5. Chest and neck: The large mass in the left lower lobe shows associated uptake, SUV is 12.2. There is no cervical or supraclavicular adenopathy. Left pleural effusion is noted. No mediastinal, axillary, or hilar adenopathy. There is no pericardial effusion. Coronary artery calcification is present. Ques tion a small subpleural nodule at the right posterior costophrenic angle, no associated uptake. ABDOMEN: There is uptake associated with the colon which is likely physiologic. No adrenal mass or re troperitoneal adenopathy. Patient is post cholecystectomy. No evident ascites. Osseous structures show no suspicious uptake. IMPRESSION: Findings suggest bronchogenic carcinoma. Left pleural effusion.
== END | disposition home or self-care (01) ==
LOC: RADPETMAIN 15:07
PROVIDERS: ATTEND Internal Medicine Critical Care Medicine
DX: R91.1 Solitary pulmonary nodule (principal); J90 Pleural effusion, not elsewhere classified
CPT/HCPCS: 78815; A9552

== ENCOUNTER 2021-06-22 09:11 | Day surgery (SDC) | payer MEDICARE ==
[~2021-06-22 09:11] MED LIST: ALBUTEROL NEB (CONC) 2.5 MG/0.5 ML INHALATION ONE; LIDOCAINE 2% (PF) 20 MG/ML 5 ML VIAL INHALATION ONE; LIDOCAINE VISCOUS 300 MG/15 ML CUP MUCOUS MEM ONE; SODIUM CHLORIDE 0.9% 1,000 ML IV SCH
[2021-06-22 10:16] VITALS: TEMP 97.8
[2021-06-22] MEDS: LACTATED RINGERS 1,000 ML IV SCH ×2 (10:29→11:57)
[2021-06-22 10:32] LABS: Glucose,Whole Blood 200 mg/dL (75-99)
[2021-06-22] MEDS ORDERED: GLYCOPYRROLATE 0.2 MG/ML 2 ML VIAL ONE (12:00)
[2021-06-22] MEDS ORDERED: LABETALOL 5 MG/ML VIAL MDV ONE (12:00)
[2021-06-22] MEDS ORDERED: SUCCINYLCHOLINE CHLORIDE 100 MG/5 ML SYR IV ONE (12:00)
[2021-06-22] MEDS ORDERED: ROCURONIUM 10 MG/ML (5 ML VIAL) IV ONE (12:00)
[2021-06-22] MEDS ORDERED: NEOSTIGMINE 1 MG/ML 10 ML VIAL ONE (12:00)
[2021-06-22] MEDS ORDERED: LIDOCAINE 2% INJ 20 MG/ML (2 ML VIAL) ONE (12:00)
[2021-06-22] MEDS ORDERED: fentaNYL (PF) 50 MCG/ML 2 ML AMP ONE (12:00)
[2021-06-22] MEDS ORDERED: PROPOFOL 10 MG/ML 20 ML VIAL IV ONE (12:00)
--- NOTE | 2021-06-22 12:30 | P.PCN ---
Date of Procedure: 06/22/21 Preoperative Diagnosis: Left lower lobe mass Postoperative Diagnosis: Left lower lobe mass Procedure(s) Performed: Operative Findings: Operative Findings: left lower lobe mass Postoperative Diagnosis: left lower lobe mass Procedure(s) Performed: 1 flexible bronchoscopy, airway inspection 2 navigation bronchoscopy, transbronchial biopsy of a left lower lobe mass, transbronchial brushing of the left lower lobe mass, bronchioalveolar lavage of the left lower lobe Surgeon: Bebeto Carr Estimated Blood Loss (ml): 5 cc Pathology: TBBX of the left lower lobe, brushing of the left lower lobe, bronchioloalveolar lavage/BAL of the left lower lobe mass Condition: stable Disposition: same day Operative Findings: The patient had a preoperative computed tomography scan of the chest using the nxtControlan protocol. The CAT scan images were reviewed. The left lower lobe opacity was identified it was mapped appropriately. The CAT scan images are uploaded into a USB and then into the [employer] Navigation tower. After obtaining the consent the patient was taken to the OR suite he was intubated and put on mechanical ventilation by anesthesia then the scope was advanced to the ET tube until the Trachea was seen and it was normal and then the sincere appears normal then the scope advanced to the left main and NIYAH LB1- LB3 were seen and no endobronchial lesions were seen then the scope advanced to the lingula and the LB4 and LB5 were seen and no endobronchial lesions were seen the scope retracted and advanced to the left lower lobes LB6 to LB12 were seen one by one and posterior segment of the left lower lobe was quite narrowed and atelectatic. Similarly, there was some narrowing of the left or segment of the left lower lobe. Aggressive the segments were all patent. Then, the scope was retracted back to the sincere and advanced to the Right main and RUL RB1 and RB2 and RB3 were seen one by one and no endobronchial lesions were seen the scope, however, the segment of the posterior right upper lobe bronchus were atelectatic and narrowed and extrinsically compressed. The bronchoscope was then retracted and advanced to the BI and RML RB4 and RB5 were seen and no endobronchial lesions were seen then it was retracted and advanced to the RLL RB6 to RB12 were seen one by one and no endobronchial lesions. Navigation bronchoscopy was performed. The main sincere and the secondary sincere on the left were used as the reference points and appropriate calibration was done. Following that, using a navigation guidance , the bronchoscope was advanced to the left lower lobe posterior segment and various transbronchial biopsies of the left lower lobe opacity was done without any complications. Following that, transbronchial brushing of the left lower lobe was done using navigational guidance. Minimal endobronchial bleeding was encountered. A bronchial lavage (BAL) of the left lower lobe was done with a total of 80 mL of fluid was infused and 15cc was aspirated without any major difficulties. Aspirate was bloody The procedure was Completed without any complications. Patient will be extubated and following that the patient on the chest with the recovery. The chest to be done to rule out pneumothorax. Once stable, the patient can be discharged home. We'll continue to follow.
[2021-06-22 12:47] VITALS: RESP 16
[2021-06-22 13:28] LABS: Glucose,Whole Blood 190 mg/dL (75-99)
[2021-06-22 14:07] VITALS: BP 135/69; PULSE 75
--- NOTE | 2021-06-22 14:12 | XR ---
EXAMINATION TYPE: XR chest 1V DATE OF EXAM: 06/22/2021 COMPARISON: 03/29/2021 HISTORY: Post bronchoscopy TECHNIQUE: Single frontal view of the chest is obtained. FINDINGS: There is a large area of consolidation or mass in the left perihilar region. Nodular densi ties measuring a centimeter or less are seen in bilateral upper lobes and there is changes suggestive of COPD. Diffuse osteopenia and arthropathy of the shoulders. Surgical clips are seen in the soft ti ssues of the left neck. There is a tiny left pleural effusion. Atherosclerotic change aorta. Hypertro phic and degenerative change of the spine. IMPRESSION: 1. No pneumothorax. 2. Large area of mass or consolidation left upper lobe with bilateral pulmonary nodules.
--- NOTE | 2021-06-22 15:55 | CT ---
EXAMINATION TYPE: CT Chest wo con [facility] Protocol DATE OF EXAM: 06/22/2021 COMPARISON: Outside CT dated 04/21/2021 HISTORY: pulmonary mass CT DLP: 610 mGycm Automated exposure control for dose reduction was used. TECHNIQUE: CT scan of the chest without IV contrast administration as per [facility] protocol. FINDINGS: Redemonstration of the previously seen left lower lobe superior segment mass measuring 5.7 x 7.4 cm c ompared to 5.6 x 6.7 cm previously. 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 Small to moderate left-sided pleural effusion. S table chronic atelectasis in the lingula/upper lobe. Scattered peripheral pulmonary reticulations and minimal fibrotic changes. Stable elongated 6 mm nodule along the superior aspect of the right oblique fissure. Few millimetric nodules are seen at the posterolateral aspect of the right upper lobe as well as the right lower lobe superior segment, stable. Minimal fibrotic changes in the lung apex, stable. Stable millimetric midd le lobe nodule. Patent trachea and main bronchi. No right-sided pleural effusion or pericardial effus ion. Left atrial dilatation. Coronary and arterial atherosclerotic calcifications. The pulmonary trunk lori sures 2.9 cm. Subcentimeter mediastinal lymph nodes, nonspecific. Hilar lymph nodes are suboptimally assessed. Previous cholecystectomy. Marked fatty infiltration of the pancreas. Unremarkable adrenals. Fecal loading of the visualized portion of the colon. Bilateral subtle pleural calcifications. No gr oss aggressive bone lesion. IMPRESSION: KNOWN LEFT LUNG MASS WITH INTERVAL CHANGES AND OTHER FINDINGS DETAILED ABOVE.
== END 2021-06-22 14:30 | disposition home or self-care (01) ==
LOC: ORWHC2ENDO 09:11
PROVIDERS: ATTEND Internal Medicine Critical Care Medicine
DX: C34.32 Malignant neoplasm of lower lobe, left bronchus or lung (principal); I10 Essential (primary) hypertension; E78.5 Hyperlipidemia, unspecified; E11.9 Type 2 diabetes mellitus without complications; K21.9 Gastro-esophageal reflux disease without esophagitis; Z79.84 Long term (current) use of oral hypoglycemic drugs; Z79.02 Long term (current) use of antithrombotics/antiplatelets; Z79.82 Long term (current) use of aspirin; Z79.4 Long term (current) use of insulin; Z79.891 Long term (current) use of opiate analgesic; Z79.899 Other long term (current) drug therapy
CPT/HCPCS: 88104; 88108; 88305; 88342; 88341; 71045; 71250; 31625; 31623; 31624; 31627; J2710; J3010; J0330; J2704; J2001